=== PATIENT | female | born 1965 | race Caucasian/White ===

== ENCOUNTER 2020-01-11 06:09 | Outpatient (REF) | payer OTHER, SELFPAY ==
[2020-01-11 07:46] LABS: Alanine Aminotransferase 20 U/L (0-31); Albumin Level 4.6 g/dL (3.5-5.0); Alkaline Phosphatase 85 U/L (39-117); Anion Gap 13 (12-20); Aspartate Amino Transferase 18 U/L (5-31); Bilirubin Total 0.3 mg/dL (0.0-1.0); Blood Urea Nitrogen 10 mg/dL (9-16); Calcium 9.8 mg/dL (8.4-10.2); Carbon Dioxide 27 mmol/L (22-29); Chloride 103 mmol/L (96-108); Cholesterol 211 mg/dL; Estimated Glomerular Filt Rate > 60; Glucose Fasting 86 mg/dL (60-99); HDL Cholesterol 47 mg/dL; LDL Cholesterol Calculated 120 mg/dl; Potassium 4.5 mmol/l (3.3-5.1); Sodium 138 mmol/L (135-145); Total Protein 7.7 g/dL (6.5-8.0); Triglycerides 224 mg/dL
== END 2020-01-11 06:10 | disposition home or self-care (01) ==
LOC: HO.LAB 06:09
PROVIDERS: PCP Internal Medicine; Visit Provider Internal Medicine
DX: E78.00 Pure hypercholesterolemia, unspecified (principal)
CPT/HCPCS: 80053; 80061

== ENCOUNTER 2020-06-28 07:23 | Outpatient (REF) | payer OTHER, SELFPAY ==
--- NOTE | ~2020-06-28 | MM_ITS ---
EXAMINATION: MM SCREENING DIGITAL BREAST TOMOSYNTHESIS, BILATERAL CLINICAL INFORMATION: Screening. Asymptomatic. The lifetime risk of breast cancer based on the Tyrer-Cuzick Model is 8.8%. COMPARISON: Mammography: June 03, 2018 and studies dating back to February 02, 2013 TECHNIQUE: Digital breast tomosynthesis is performed in both the craniocaudal and mediolateral oblique views along with computer-aided detection (CAD). Synthesized 2D images are generated from the tomosynthesis. FINDINGS: The breasts are heterogeneously dense, which may obscure small masses (ACR BI-RADS breast composition Category c). No specific right breast abnormality is appreciated. Within the central medial aspect of the left breast there is a grouping of calcification for which spot magnification views in craniocaudal and 90 degree mediolateral views is recommended. MM/MM tomosynthesis screening BI IMPRESSION: Left breast calcifications for further evaluation. ASSESSMENT: BI-RADS 0: Incomplete - Need Additional Imaging Evaluation RECOMMENDATION: 1. Additional views of the left breast 2. Radiology department staff will contact the patient for additional imaging.
== END 2020-06-28 07:24 | disposition home or self-care (01) ==
LOC: HO.MAMMO 07:23
PROVIDERS: Visit Provider Internal Medicine
DX: Z12.31 Encounter for screening mammogram for malignant neoplasm of breast (principal)
CPT/HCPCS: 77063; 77067

== ENCOUNTER 2020-07-09 15:02 | Outpatient (REF) | payer OTHER, SELFPAY ==
--- NOTE | ~2020-07-09 | MM_ITS ---
EXAMINATION: MM DIAGNOSTIC DIGITAL MAMMOGRAPHY, LEFT CLINICAL INFORMATION: Recall from screening for question of faint calcification medial left breast. COMPARISON: Mammography: 06/28/2020, 06/03/2018 TECHNIQUE: Digital mammography is performed in the following views: Magnification CC x2, magnification LM x2. FINDINGS: The breasts are heterogeneously dense, which may obscure small masses (ACR BI-RADS breast composition Category c). Breast tissue composition borders on average fibroglandular. The additional views confirm grouped faint amorphous calcifications upper inner quadrant left breast. Finding represents change from prior exams. Recommend stereotactic sampling. Results are discussed with the patient at time of visit. MM/MM added views LT IMPRESSION: Amorphous calcifications upper inner left breast corresponding to finding on recent mammography. ASSESSMENT: BI-RADS 4: Suspicious RECOMMENDATION: Stereotactic sampling left breast calcifications.
== END 2020-07-09 15:03 | disposition home or self-care (01) ==
LOC: HO.MAMMO 15:02
PROVIDERS: Visit Provider Internal Medicine
DX: R92.1 Mammographic calcification found on diagnostic imaging of breast (principal)
CPT/HCPCS: 77065

== ENCOUNTER 2020-08-05 09:06 | Outpatient (REF) | payer OTHER, SELFPAY ==
--- NOTE | ~2020-08-05 | MM_ITS ---
EXAMINATION: STEREOTACTIC TOMOSYNTHESIS-GUIDED VACUUM-ASSISTED BREAST BIOPSY, LEFT SPECIMEN RADIOGRAPH, LEFT POST PROCEDURE DIGITAL MAMMOGRAM, LEFT CLINICAL INFORMATION: Indeterminate calcifications about the medial aspect of the left breast. COMPARISON: July 09, 2020 and studies dating back to May 24, 2017. TECHNIQUE/PROCEDURE: Informed consent was obtained from the patient after discussion of the benefits, risks, and alternatives to biopsy today. Patient appeared to understand. Gave opportunity for questions. Patient signed consent form. BIOPSY TABLE: [employer] Aff[employer] Prone Biopsy System. LESION: Calcifications. LOCAL ANESTHESIA: 10 mL 1% lidocaine; 16 mL 1% lidocaine with epinephrine. DERMATOTOMY: Single skin mariangel dermatotomy performed. NEEDLE: [employer] Eviva 9-gauge vacuum assisted core biopsy device. APPROACH: medial lateral. TARGETING: Digital breast tomosynthesis used for targeting. CORES: 15. CLIP: [employer] Cylinder-shaped marker. SPECIMEN RADIOGRAPH: Specimen radiograph is taken in separate room using digital mammography. The index calcifications are in the excised cores. Some of the calcifications appear to be vascular in nature. POST PROCEDURE UNILATERAL DIGITAL MAMMOGRAM: The post biopsy mammogram is performed in separate room using separate digital mammography equipment from the biopsy procedure. 2 views are obtained. The breasts are heterogeneously dense, which may obscure small masses (breast composition category: c). The clip marker is in position. The calcifications are markedly decreased at the biopsy site. There is a small hematoma. The patient tolerated the procedure well. No immediate complications. Home instructions reviewed with the patient. Final pathology results are pending. MM/MM stereotactic biopsy LT IMPRESSION: 1. Digital tomosynthesis-guided core biopsy left breast with clip placement. 2. Specimen radiograph taken and post procedure mammogram. There is satisfactory positioning of the biopsy clip. 3. Final pathology results pending. An addendum report will be issued.
== END 2020-08-05 09:07 | disposition home or self-care (01) ==
LOC: HO.MAMMO 09:06
PROVIDERS: Visit Provider Surgery
DX: R92.1 Mammographic calcification found on diagnostic imaging of breast (principal)
CPT/HCPCS: 19081; 88305; 88341; 88342; A4648

== ENCOUNTER → 2020-08-08 11:19 | Outpatient (BNVA) | payer OTHER, SELFPAY | PROVIDERS: PCP Internal Medicine; Referring Provider Internal Medicine; Visit Provider Surgery ==

== ENCOUNTER 2020-12-31 05:53 | Outpatient (REF) | payer OTHER, SELFPAY ==
[2020-12-31 06:09] LABS: MANUAL DIFF FLAG NO
[2020-12-31 07:23] LABS: Basophils Absolute Auto 0.1 X10*3/uL (0.0-0.2); Basophils Percent Auto 0.5 % (0-2); Eosinophils Absolute Auto 0.2 X10*3/uL (0.0-0.4); Hematocrit 47.9 % (37.0-47.0); Hemoglobin 15.5 g/dl (12.0-16.0); Imm Gran Abs Auto 0.05 X10*3/uL (0.00-0.03); Imm Gran Pct Auto 0.5 % (0.0-0.4); Lymphocytes Absolute Auto 2.9 X10*3/uL (1.2-4.9); Lymphocytes Percent Auto 30.1 % (20-40); Mean Corpuscular HGB Conc 32.4 g/dl (31.0-35.0); Mean Corpuscular Hemoglobin 30.9 pg (27.0-33.0); Mean Corpuscular Volume 95.6 fL (80.0-98.0); Mean Platelet Volume 11.2 fL (9.4-12.3); Monocytes Absolute Auto 0.6 X10*3/uL (0.1-1.2); Monocytes Percent Auto 6.3 % (2-11); Neutrophils Absolute Auto 5.8 x10*3/uL (2.0-8.3); Neutrophils Percent Auto 60.6 % (45-73); Platelet Count 221 X10*3/uL (160-400); Red Blood Count 5.01 X10*6/uL (4.20-5.50); Red Cell Distribution Width 13.2 % (11.0-16.0); White Blood Count 9.5 X10*3/uL (4.8-10.8)
[2020-12-31 07:47] LABS: Alanine Aminotransferase 24 U/L (0-31); Albumin Level 4.5 g/dL (3.5-5.0); Alkaline Phosphatase 74 U/L (39-117); Anion Gap 14 (12-20); Aspartate Amino Transferase 23 U/L (5-31); Bilirubin Total 0.2 mg/dL (0.0-1.0); Blood Urea Nitrogen 12 mg/dL (9-16); Calcium 10.1 mg/dL (8.4-10.2); Carbon Dioxide 26 mmol/L (22-29); Chloride 106 mmol/L (96-108); Cholesterol 209 mg/dL; Estimated Glomerular Filt Rate > 60; Glucose Random 95 mg/dL (60-115); HDL Cholesterol 56 mg/dL; LDL Cholesterol Calculated 126 mg/dl; Potassium 4.8 mmol/L (3.3-5.1); Sodium 141 mmol/L (135-145); Total Protein 7.6 g/dL (6.5-8.0); Triglycerides 136 mg/dL
[2020-12-31 08:02] LABS: Estimated Average Glucose 111 mg/dL; Hemoglobin A1c % 5.5 %
[2020-12-31 08:10] LABS: Free T4 (Free Thyroxine) 1.06 ng/dL (0.71-1.85); Thyroid Stimulating Hormone 1.24 uIU/mL (0.32-4.0)
[2020-12-31 08:19] LABS: Folate 14.8 ng/mL (> or = 4.0); Vitamin B12 354 pg/mL (200-900)
== END 2020-12-31 05:54 | disposition home or self-care (01) ==
LOC: HO.LAB 05:53
PROVIDERS: PCP Internal Medicine; Visit Provider Internal Medicine
DX: R73.02 Impaired glucose tolerance (oral) (principal); E03.9 Hypothyroidism, unspecified; E78.00 Pure hypercholesterolemia, unspecified
CPT/HCPCS: 36415; 80053; 80061; 82306; 82607; 82746; 83036; 84439; 84443; 85025

== ENCOUNTER → 2021-04-23 10:16 | Outpatient (BNVA) | payer OTHER, SELFPAY | PROVIDERS: PCP Internal Medicine; Visit Provider Internal Medicine | DX: S46.912A Strain of unspecified muscle, fascia and tendon at shoulder and upper arm level, left arm, initial encounter (principal); S46.212A Strain of muscle, fascia and tendon of other parts of biceps, left arm, initial encounter; X50.1XXA Overexertion from prolonged static or awkward postures, initial encounter | CPT/HCPCS: 99203 ==

== ENCOUNTER → 2021-04-27 07:31 | Outpatient (BNVA) | payer OTHER, SELFPAY | PROVIDERS: PCP Internal Medicine; Visit Provider Physician Assistant Medical | DX: S46.912A Strain of unspecified muscle, fascia and tendon at shoulder and upper arm level, left arm, initial encounter (principal); S46.212A Strain of muscle, fascia and tendon of other parts of biceps, left arm, initial encounter; X58.XXXA Exposure to other specified factors, initial encounter | CPT/HCPCS: 99213 ==

== ENCOUNTER 2021-07-27 07:32 | Outpatient (REF) | payer OTHER, SELFPAY ==
--- NOTE | ~2021-07-27 | MM_ITS ---
EXAMINATION: MM SCREENING DIGITAL BREAST TOMOSYNTHESIS, BILATERAL CLINICAL INFORMATION: Screening. Asymptomatic. Benign left stereotactic biopsy 08/05/2020 (benign breast tissue with fibrocystic changes and adenosis). The lifetime risk of breast cancer based on the Tyrer-Cuzick Model is 8%. COMPARISON: Mammography: 08/05/2020, 07/09/2020, 06/28/2020, 06/03/2018 TECHNIQUE: Digital breast tomosynthesis is performed in both the craniocaudal and mediolateral oblique views along with computer-aided detection (CAD). Synthesized 2D images are generated from the tomosynthesis. FINDINGS: There are scattered areas of fibroglandular density (ACR BI-RADS breast composition Category b). Breast tissue composition borders on heterogeneously dense. There are no significant masses, abnormal calcifications, or other abnormalities. There is biopsy clip marker mid 9:00 left breast. No recurrent calcifications. The axilla and skin contours are unremarkable. MM/MM tomosynthesis screening BI IMPRESSION: No mammographic evidence of malignancy. ASSESSMENT: BI-RADS 2: Benign RECOMMENDATION: Routine annual mammography screening. This patient's information was entered into a reminder system with a target due date for their next mammogram.
== END 2021-07-27 07:33 | disposition home or self-care (01) ==
LOC: HO.MAMMO 07:32
PROVIDERS: PCP Internal Medicine; Visit Provider Internal Medicine
DX: Z12.31 Encounter for screening mammogram for malignant neoplasm of breast (principal)
CPT/HCPCS: 77063; 77067

== ENCOUNTER 2021-12-15 06:11 | Outpatient (REF) | payer OTHER, SELFPAY ==
[2021-12-15 06:17] LABS: MANUAL DIFF FLAG NO
[2021-12-15 07:32] LABS: Basophils Absolute Auto 0.1 X10*3/uL (0.0-0.2); Basophils Percent Auto 0.6 % (0-2); Eosinophils Absolute Auto 0.2 X10*3/uL (0.0-0.4); Eosinophils Percent Auto 2.5 % (0-4); Hematocrit 46.7 % (37.0-47.0); Hemoglobin 14.8 g/dl (12.0-16.0); Imm Gran Abs Auto 0.06 X10*3/uL (0.00-0.03); Imm Gran Pct Auto 0.7 % (0.0-0.4); Lymphocytes Absolute Auto 2.9 X10*3/uL (1.2-4.9); Lymphocytes Percent Auto 34.4 % (20-40); Mean Corpuscular HGB Conc 31.7 g/dl (31.0-35.0); Mean Corpuscular Hemoglobin 30.6 pg (27.0-33.0); Mean Corpuscular Volume 96.7 fL (80.0-98.0); Monocytes Absolute Auto 0.5 X10*3/uL (0.1-1.2); Neutrophils Absolute Auto 4.8 x10*3/uL (2.0-8.3); Neutrophils Percent Auto 55.8 % (45-73); Platelet Count 223 X10*3/uL (160-400); Red Blood Count 4.83 X10*6/uL (4.20-5.50); Red Cell Distribution Width 12.3 % (11.0-16.0); White Blood Count 8.5 X10*3/uL (4.8-10.8)
[2021-12-15 08:10] LABS: Erythrocyte Sedimentation Rate 4 MM/HR (0-20)
[2021-12-15 13:31] LABS: Estimated Average Glucose 117 mg/dL; Hemoglobin A1C 149.8875 umol/L; Hemoglobin A1c % 5.7 %
[2021-12-15 13:48] LABS: Albumin Level 4.7 g/dL (3.5-5.0); Alkaline Phosphatase 81 U/L (39-117); Aspartate Amino Transferase 25 U/L (5-31); Bilirubin Total 0.3 mg/dL (0.0-1.0); Blood Urea Nitrogen 12 mg/dL (9-16); Calcium 10.1 mg/dL (8.4-10.2); Chloride 103 mmol/L (96-108); Estimated Glomerular Filt Rate > 60; Glucose Random 94 mg/dL (60-115); Potassium 4.7 mmol/L (3.3-5.1); Sodium 139 mmol/L (135-145)
[2021-12-15 14:05] LABS: Alanine Aminotransferase 27 U/L (0-31); Anion Gap 16 (12-20); Carbon Dioxide 25 mmol/L (22-29); Cholesterol 253 mg/dL; Free T4 (Free Thyroxine) 0.91 ng/dL (0.71-1.85); HDL Cholesterol 60 mg/dL; LDL Cholesterol Calculated 152 mg/dl; Total Protein 7.7 g/dL (6.5-8.0); Triglycerides 208 mg/dL; Vitamin D 25-OH Total 27.8 ng/mL (>30)
[2021-12-15 14:07] LABS: Folate 11.6 ng/mL (> or = 4.0); Vitamin B12 356 pg/mL (200-900)
== END 2021-12-15 06:12 | disposition home or self-care (01) ==
LOC: HO.LAB 06:11
PROVIDERS: PCP Internal Medicine; Visit Provider Internal Medicine
DX: E03.9 Hypothyroidism, unspecified (principal); R73.02 Impaired glucose tolerance (oral); L93.0 Discoid lupus erythematosus; E78.00 Pure hypercholesterolemia, unspecified
CPT/HCPCS: 36415; 80053; 80061; 82306; 82607; 82746; 83036; 84439; 84443; 85025; 85652

== ENCOUNTER 2022-05-07 14:37 | Outpatient (REF) | payer OTHER, SELFPAY ==
--- NOTE | ~2022-05-07 | CT_ITS ---
EXAMINATION: CT CHEST SCREENING CLINICAL INFORMATION: Current smoker with 45 pack-year history of smoking. COMPARISON: None available. TECHNIQUE: Multidetector volumetric CT imaging of the chest is performed without contrast using low dose technique. Additional 2D coronal and sagittal reformatted images and axial 3D maximum intensity projection (MIP) images are generated on the CT workstation. This CT examination was performed using dose optimization techniques as appropriate, variously including the following: *Automated exposure control *Adjustment of mA and/or kV according to patient size (this includes techniques or standardized protocols for targeted exams where dose is matched to indication/reason for exam; i.e. extremities or head) *Use of iterative reconstruction technique DLP: 51 mGy-cm FINDINGS: LUNGS: Central airways are patent. No significant bronchial wall thickening is seen. No bronchiectasis is noted. No confluent parenchymal disease is seen. There are moderate changes of centrilobular and paraseptal emphysema. There are discoid regions of density about some of the bulla within the left upper lobe likely representing scarring. There is some minor ground-glass opacity seen adjacent to the left major fissure likely representing mild atelectasis. There are a few scattered sub-4 mm densities present. There is a 4 mm granuloma seen within the left lower lobe. MEDIASTINUM: Heart normal size. No pericardial effusion. No thoracic aortic aneurysm. There is a 1.2 cm short axis right precarinal lymph node. No hilar lymphadenopathy is identified. CORONARY ARTERY CALCIFICATION: There is mild coronary artery calcification present. PLEURA: There is no pleural effusion. No pleural mass or thickening. AXILLA: No lymphadenopathy. UPPER ABDOMEN: There is cholelithiasis present. OSSEOUS STRUCTURES: Unremarkable. CT/CT lung screening IMPRESSION: No suspicious lung nodules identified. Moderate emphysematous changes as described. Cholelithiasis. Old granulomatous disease. ASSESSMENT: Lung-RADS category 2: Benign RECOMMENDATION: Routine annual low-dose CT screening in 12 months.
== END 2022-05-07 14:38 | disposition home or self-care (01) ==
LOC: HO.CT 14:37
PROVIDERS: PCP Internal Medicine; Visit Provider Physician Assistant Medical
DX: Z12.2 Encounter for screening for malignant neoplasm of respiratory organs (principal); F17.210 Nicotine dependence, cigarettes, uncomplicated
CPT/HCPCS: 71271; G0296

== ENCOUNTER 2022-08-06 10:52 | Outpatient (REF) | payer OTHER, SELFPAY ==
--- NOTE | ~2022-08-06 | MM_ITS ---
EXAMINATION: MM SCREENING DIGITAL BREAST TOMOSYNTHESIS, BILATERAL CLINICAL INFORMATION: Screening. Asymptomatic. The lifetime risk of breast cancer based on the Tyrer-Cuzick Model is 8.2%. COMPARISON: Mammography: This study is compared with the prior exams dating back to 2019. TECHNIQUE: Digital breast tomosynthesis is performed in both the craniocaudal and mediolateral oblique views along with computer-aided detection (CAD). Synthesized 2D images are generated from the tomosynthesis. FINDINGS: There are scattered areas of fibroglandular density (ACR BI-RADS breast composition Category b). There are no significant masses, abnormal calcifications, or other abnormalities. There is a tissue marker present in the left breast from prior benign percutaneous biopsy. MM/MM tomosynthesis screening BI IMPRESSION: No mammographic evidence of malignancy. ASSESSMENT: BI-RADS BI-RADS 2 - Benign Findings RECOMMENDATION: Routine annual mammography screening. 1 year F/U This patient's information was entered into a reminder system with a target due date for their next mammogram.
== END 2022-08-06 10:53 | disposition home or self-care (01) ==
LOC: HO.MAMMO 10:52
PROVIDERS: PCP Internal Medicine; Visit Provider Internal Medicine
DX: Z12.31 Encounter for screening mammogram for malignant neoplasm of breast (principal)
CPT/HCPCS: 77063; 77067

== ENCOUNTER → 2022-08-06 11:00 | Outpatient (BNV) | payer OTHER, SELFPAY | PROVIDERS: PCP Internal Medicine; Visit Provider Radiology Diagnostic Radiology | DX: Z12.31 Encounter for screening mammogram for malignant neoplasm of breast (principal) | CPT/HCPCS: 77063; 77067 ==

== ENCOUNTER → 2022-12-02 11:05 | Outpatient (BNVA) | payer OTHER, SELFPAY | PROVIDERS: PCP Internal Medicine; Visit Provider Physician Assistant Medical | DX: S97.112A Crushing injury of left great toe, initial encounter (principal); W18.31XA Fall on same level due to stepping on an object, initial encounter | CPT/HCPCS: 99202 ==

== ENCOUNTER 2022-12-17 06:13 | Outpatient (REF) | payer OTHER, SELFPAY ==
[2022-12-17 06:33] LABS: MANUAL DIFF FLAG NO
[2022-12-17 07:01] LABS: Basophils Absolute Auto 0.1 X10*3/uL (0.0-0.2); Basophils Percent Auto 0.6 % (0-2); Eosinophils Absolute Auto 0.2 X10*3/uL (0.0-0.4); Eosinophils Percent Auto 1.9 % (0-4); Hematocrit 46.5 % (37.0-47.0); Hemoglobin 15.2 g/dl (12.0-16.0); Imm Gran Abs Auto 0.05 X10*3/uL (0.00-0.03); Imm Gran Pct Auto 0.6 % (0.0-0.4); Lymphocytes Absolute Auto 3.5 X10*3/uL (1.2-4.9); Lymphocytes Percent Auto 40.1 % (20-40); Mean Corpuscular HGB Conc 32.7 g/dl (31.0-35.0); Mean Corpuscular Hemoglobin 30.9 pg (27.0-33.0); Mean Corpuscular Volume 94.5 fL (80.0-98.0); Mean Platelet Volume 10.8 fL (9.4-12.3); Monocytes Absolute Auto 0.5 X10*3/uL (0.1-1.2); Monocytes Percent Auto 5.8 % (2-11); Neutrophils Absolute Auto 4.4 x10*3/uL (2.0-8.3); Platelet Count 227 X10*3/uL (160-400); Red Blood Count 4.92 X10*6/uL (4.20-5.50); Red Cell Distribution Width 12.9 % (11.0-16.0); White Blood Count 8.6 X10*3/uL (4.8-10.8)
[2022-12-17 07:12] LABS: Estimated Average Glucose 114 mg/dL; Hemoglobin A1c % 5.6 % (<6.0)
[2022-12-17 07:44] LABS: Alanine Aminotransferase 20 U/L (0-31); Albumin Level 4.6 g/dL (3.5-5.0); Alkaline Phosphatase 74 U/L (39-117); Anion Gap 12 (12-20); Aspartate Amino Transferase 23 U/L (5-31); Bilirubin Total 0.4 mg/dL (0.0-1.0); Blood Urea Nitrogen 12 mg/dL (9-16); Calcium 9.8 mg/dL (8.4-10.2); Carbon Dioxide 26 mmol/L (22-29); Chloride 106 mmol/L (96-108); Cholesterol 235 mg/dL (<200); Estimated Glomerular Filt Rate > 60; Glucose Random 99 mg/dL (60-115); HDL Cholesterol 52 mg/dL (>40); LDL Cholesterol Calculated 153 mg/dL (<100); Potassium 4.2 mmol/L (3.3-5.1); Sodium 140 mmol/L (135-145); Total Protein 7.9 g/dL (6.5-8.0); Triglycerides 153 mg/dL (<150)
[2022-12-17 07:52] LABS: Free T4 (Free Thyroxine) 0.95 ng/dL (0.71-1.85); Thyroid Stimulating Hormone 2.96 uIU/mL (0.32-4.0); Vitamin D 25-OH Total 27.5 ng/mL (>30)
[2022-12-17 08:04] LABS: Folate 11.6 ng/mL (> or = 4.0); Vitamin B12 431 pg/mL (200-900)
== END 2022-12-17 06:14 | disposition home or self-care (01) ==
LOC: HO.LAB 06:13
PROVIDERS: PCP Internal Medicine; Visit Provider Internal Medicine
DX: E03.9 Hypothyroidism, unspecified (principal); R73.02 Impaired glucose tolerance (oral); E78.00 Pure hypercholesterolemia, unspecified; E55.9 Vitamin D deficiency, unspecified; M85.80 Other specified disorders of bone density and structure, unspecified site
CPT/HCPCS: 36415; 80053; 80061; 82306; 82607; 82746; 83036; 84439; 84443; 85025

== ENCOUNTER 2023-03-24 11:06 | Outpatient (AMB) | payer OTHER, SELFPAY ==
--- NOTE | 2023-03-24 11:15 | A.OFFPC_ITS ---
Vital Signs 03/24/23 11:16 Height 5 ft 1 in Weight 155 lb BMI 29.3 BP 130/76 Blood Pressure Location Lt brachial Position Sitting Pulse 90 Pulse Source Pulse Oximeter Pulse Oximetry (%) 96 Oxygen Delivery Method Room Air Intake Visit Reasons: Annual Physical Dial Polisher Required: No Padded Products Finisher: Not Required per policy Accompanied by: Self / Same As Patient Allergies amoxicillin Allergy (Unknown, Verified 03/24/23 11:16) Unknown itraconazole [Sporanox] Allergy (Unknown, Verified 03/24/23 11:16) ear swelling metronidazole [Flagyl] Allergy (Unknown, Verified 03/24/23 11:16) stomach upset pseudoephedrine [Sudafed] Adverse Reaction (Unknown, Verified 03/24/23 11:16) rapid heart rate Medication List - Last Reconciled 03/24/23 by Trevor Bell MD betamethasone dipropionate 0.05% 1 appl topical BID clobetasol 0.05% 1 appl topical BID fexofenadine ([place] Allergy) 180 mg PO DAILY Levoxyl (levothyroxine) 112 mcg PO QAM NS simvastatin 5 mg PO BEDTIME tacrolimus 0.1% 1 appl topical BID Tobacco use date assessed: 03/24/23 Dental Screening Dental Screen Date: 03/24/23 Did you have a dental visit in the last 12 months?: Yes Did you have a dental problem in the last 6 months where you did not have access to dental care?: No Was dental information given to patient?: Patient has dentist HPI Annual Physical HPI Details 57 year old overweight female smoker wi th IGT, Cholesterol, hypothyroid coming in for PT CT scan chest 04/2022 yearly. noted choelithiasis and COPD. problem with L ear hearing. [facility] Medical History Asthma Blood pressure elevated without history of HTN Cholelithiasis Discoid lupus History of gestational diabetes Hypercholesterolemia Hyperplastic colon polyp (~2017) Hypothyroid Nicotine dependence, cigarettes, uncomplicated Osteopenia (~2017) Vitamin D deficiency Surgical History History of colonoscopy History of section Family History (Updated 03/24/23 @ 12:10 by Trevor Bell MD) Father Myocardial infarction Mother CHF (congestive heart failure) Paternal Aunt Pancreatic cancer Sister Brain tumor Myocardial infarction Substance abuse Sister Heart problem Paternal Grandmother Lung cancer Sister Malignant glucagonoma Brother Substance abuse Maternal Uncle Substance abuse Social History (Updated 03/24/23 @ 12:12 by Trevor Bell MD) Housing: House Alcohol intake: current Comment: once Q 6 month 2 drinks Patient Tobacco Use Status: Current everyday Tobacco user Tobacco use type: Cigarette Cigarette Packs Per Day: 0.5 Cigarettes Per Day: 10 Years Smoked: (onset 11yo, 1ppd x 45yrs, now 1/2ppd, 40pyh)- smoking 11-12 cigarettes a e-Cigarette/Vaping Use: Never Used Second Hand Smoke Exposure: No Current occupational status: employed Cognitive needs: No Hearing needs: No Vision needs: Yes Female Reproductive History Menstrual Age of Menarche: 16 Questionnaire PHQ-9 Over the last 2 weeks, how often have you been bothered by any of the following problems? 1. Little interest or pleasure in doing things: not at all 2. Feeling down, depressed, or hopeless: not at all 3. Trouble falling or staying asleep, or sleeping too much: not at all 4. Feeling tired or having little energy: not at all 5. Poor appetite or overeating: not at all 6. Feeling bad about yourself - or that you are a failure or have let yourself or your family down: not at all 7. Trouble concentrating on things, such as reading the newspaper or watching television: not at all 8. Moving or speaking so slowly that other people could have noticed. Or the opposite - being so fidgety or restless that you have been moving around a lot more than usual: not at all 9. Thoughts that you would be better off or of hurting yourself in some way: not at all Total score: 0 Depression Screening Interpretation: Negative Depression Screening Done: Yes Source: Developed by Drs. Doni Aponte, Gisele Maxwell, Fred Cortez and colleagues, with an educational micah from [employer]. Thrive Questionnaire Date Thrive assessed: 03/24/23 I am a: Patient What is your living situation today?: I have a steady place to live Within the past 12 months, did the food you bought not last and you didn't have the money to get more?: Never true Within the past 12 months, did you worry whether your food would run out before you got money to buy more?: Never true Do you have trouble paying for medicines?: No Do you have trouble getting transportation to medical appointments?: No Do you have trouble paying your heating and electricity bill?: No Do you have trouble taking care of your child, family member or friend?: No Do you have trouble with day-to-day activities such as bathing, preparing meals, shopping, managing finances, etc.?: No Are you currently unemployed and looking for a job?: No Are you interested in more education?: No Please select the resources that you would like help with: None THRIVE Score: 0 AUDIT C Alcohol Use Questionnaire (AUDIT-C) 1. How often do you have a drink containing alcohol?: Monthly or less 2. How many drinks containing alcohol do you have on a typical day when you are drinking?: 1 or 2 3. How often do you have six or more drinks on one occasion?: Never Total Score: 1 CAROLYN-7 AMB Questionnaire CAROLYN-7 Date CAROLYN - 7 assessed: 03/24/23 Feeling nervous, anxious, or on edge: 0 = Not at all Not being able to stop or control worryin = Not at all Worrying too much about different things: 0 = Not at all Trouble relaxin = Not at all Being so restless that it is hard to sit still: 0 = Not at all Becoming easily annoyed or irritable: 0 = Not at all Feeling afraid as if something awful might happen: 0 = Not at all Total CAROLYN-7 score (0-4 normal; 5-9 mild; 10-14 moderate; 15-21 severe): 0 Source: Developed by Drs. Doni Aponte, Gisele Maxwell, Fred Cortez and colleagues, with an educational micah from [employer]. Review of Systems Const Denies poor appetite and Denies weakness Eyes Denies no additional complaints ENT Reports Normal hearing present, Denies dizziness, Denies nasal congestion, Denies tinnitus and Denies sore throat Card Denies chest pain, Denies syncope, Denies rapid heart rate and Denies dyspnea Resp Denies cough and Denies dyspnea GI Denies change in stool character, Reports constipation, Denies diarrhea, Denies nausea and Denies vomiting Denies urinary frequency, Denies difficulty voiding and Denies dysuria Neuro Reports Normal hearing present, Denies confusion, Denies dizziness, Denies syncope and Denies weakness Psych Denies confusion Physical exam (Primary Care) Vital Signs: Last Vital Signs Pulse 90 03/24/23 11:16 BP 130/76 03/24/23 11:16 Pulse Ox 96 03/24/23 11:16 Oxygen Delivery Method Room Air 03/24/23 11:16 BMI result Body Mass Index 29.3 Tobacco/Smoking Status: Tobacco use Status Tobacco use date assessed 03/24/23 03/24/23 11:17 Patient Tobacco Use Status Current everyday Tobacco 03/24/23 12:12 Tobacco use type Cigarette 03/24/23 12:12 e-Cigarette/Vaping Use Never Used 03/24/23 12:12 PHQ-9: PHQ-9 Score PHQ-9: Total score 0 03/24/23 12:14 Depression Screening Interpretation: Negative Thrive Assessment: Date of Thrive Assessment Date Thrive assessed 03/24/23 03/24/23 11:17 Const General: No confusion Orientation/consciousness: No confusion HENMT Head: Yes normocephalic Ears: external ears normal and TM's normal bilaterally Face and sinus: Yes normal facial exam Mouth: moist mucous membranes Throat: Yes tonsils normal Eyes Conjunctivae: conjunctivae normal Pupils: Equal, round and reactive pupils present and Pupil accommodation reflex normal Direct Ophthalmoscopy: normal light reflex Neck Neck: No lymphadenopathy Thyroid: Thyroid normal Chest Chest palpation & inspection: normal inspection of the chest Resp Effort & Inspection: normal respiratory effort and no audible wheezes Auscultation: clear to auscultation bilaterally, no crackles, no wheezes and lung sounds not diminished Cardio Rate: regular rate Rhythm: regular rhythm Peripheral pulses: radial pulses present and dorsalis pedis present GI Palpation (GI): no masses Auscultation: normal bowel sounds and normoactive bowel sounds Rectal Exam - Female: deferred Skin General skin exam: no rashes or lesions noted Rashes: no rashes Neuro General: No confusion Cranial nerves: Yes Equal, round and reactive pupils present and Yes Normal hearing present Cognition (Neuro): normal cognition Gait exam (Neuro): Normal gait present Motor exam (neuro): 5/5 motor strength present throughout Deep tendon reflexes (DTR's): Right brachioradialis reflex intensity grade: 2+, Left brachioradialis reflex intensity grade: 2+, Right patellar reflex intensity grade: 2+ and Left patellar reflex intensity grade: 2+ Extrem General: No edema Assessment and Plan Assessment & Plan (1) Annual physical exam: Code(s): Z00.00 - Encounter for general adult medical examination without abnormal findings Plan: Keep well hydrated, eat healthy (2) Hypothyroid: Code(s): E03.9 - Hypothyroidism, unspecified Qualifiers: Hypothyroidism type: acquired Qualified Code(s): E03.9 - Hypothyroidism, unspecified Plan: continue with thryoid med 12/2022 last test (3) Hypercholesterolemia: Code(s): E78.00 - Pure hypercholesterolemia, unspecified Plan: on Simvastatin (4) Asthma: Code(s): J45.909 - Unspecified asthma, uncomplicated Plan: STOP smoking (5) Nicotine dependence, cigarettes, uncomplicated: Comment: (current smoker - onset 11yo, 1ppd x 45yrs, now 1/2ppd, 40pyh) Code(s): F17.210 - Nicotine dependence, cigarettes, uncomplicated Plan: STOP smoking -! CT scan 05/07/2022 (6) Osteopenia: Onset Date: ~2017 Comment: (Bone Dexa Femoral T-score: -1.1 on 01/20/18) Code(s): M85.80 - Other specified disorders of bone density and structure, unspecified site Plan: keep active discussedc about calcium and vitamin d Orders: Orders Lipid Panel 3 Months E78.00 - Pure hypercholesterolemia, unspecified Comprehensive Met. Panel 3 Months E78.00 - Pure hypercholesterolemia, unspecified Hemoglobin A1c 3 Months R73.02 - Impaired glucose tolerance (oral) XR DEXA axial skeleton Today M81.0 - Age-related osteoporosis without current pathological fracture, M85.80 - Other specified disorders of bone density and structure, unspecified site Medications: New varenicline (Chantix Starting Month Box) PO PER PKG DIR 53 ea 0RF F17.210 - Nicotine dependence, cigarettes, uncomplicated Changed From simvastatin 5 mg PO BEDTIME 90 tabs 3RF E78.00 - Pure hypercholesterolemia, unspecified To simvastatin 10 mg PO BEDTIME 30 tabs 5RF E78.00 - Pure hypercholesterolemia, unspecified Coding Level of Care Code Est Pt Prev Care 40-64y(62531) Diagnoses Annual physical exam Z00.00 Acquired hypothyroidism E03.9 Hypothyroidism type: acquired Hypercholesterolemia E78.00 Asthma J45.909 Nicotine dependence, cigarettes, uncomplicated F17.210 Osteopenia M85.80
[2023-03-24 11:16] VITALS: BP 130/76; PULSE 90; O2SAT 96; BMI 29.3
== END 2023-03-24 12:34 | disposition home or self-care (01) ==
PROVIDERS: PCP Internal Medicine; Visit Provider Internal Medicine
DX: Z00.00 Encounter for general adult medical examination without abnormal findings (principal); E03.9 Hypothyroidism, unspecified; E78.00 Pure hypercholesterolemia, unspecified; J45.909 Unspecified asthma, uncomplicated; F17.210 Nicotine dependence, cigarettes, uncomplicated; M85.80 Other specified disorders of bone density and structure, unspecified site
CPT/HCPCS: 99396

== ENCOUNTER 2023-06-27 11:21 | Outpatient (AMB) | payer OTHER, SELFPAY ==
--- NOTE | 2023-06-27 11:34 | MHC.PC.OV ---
Vital Signs 06/27/23 11:35 Height 5 ft 1 in Weight 159 lb 0.4 oz BMI 30.0 BP 132/78 Blood Pressure Location Lt brachial Position Sitting Pulse 76 Pulse Source Pulse Oximeter Oxygen Delivery Method Room Air Intake Visit Reasons: cholesterol [employer] Supervisor Required: No Allergies amoxicillin Allergy (Unknown, Verified 06/27/23 11:35) Unknown itraconazole [Sporanox] Allergy (Unknown, Verified 06/27/23 11:35) ear swelling metronidazole [Flagyl] Allergy (Unknown, Verified 06/27/23 11:35) stomach upset pseudoephedrine [Sudafed] Adverse Reaction (Unknown, Verified 06/27/23 11:35) rapid heart rate Medication List - Last Reconciled 06/27/23 by Trevor Bell MD betamethasone dipropionate 0.05% 1 appl topical BID clobetasol 0.05% 1 appl topical BID fexofenadine ([place] Allergy) 180 mg PO DAILY Levoxyl (levothyroxine) 112 mcg PO QAM NS simvastatin 10 mg PO BEDTIME tacrolimus 0.1% 1 appl topical BID varenicline (Chantix Starting Month Box) PO PER PKG DIR varenicline (Chantix Continuing Month Box) 1 mg PO BID Tobacco use date assessed: 06/27/23 Dental Screening Dental Screen Date: 06/27/23 HPI cholesterol HPI Details 57-year-old obese female smoker(April [address]) with hypothyroidism hypercholesterolemia asthma and osteopenia last seen in March 2023. Patient's mammogram is up-to-date July 2022 colonoscopy up-to-date December 2017 and a bone density requested. [facility] Medical History Asthma Blood pressure elevated without history of HTN Cholelithiasis Discoid lupus History of gestational diabetes Hypercholesterolemia Hyperplastic colon polyp (~2017) Hypothyroid Nicotine dependence, cigarettes, uncomplicated Osteopenia (~2018) Vitamin D deficiency Surgical History History of colonoscopy History of section Family History (Updated 03/24/23 @ 12:10 by Trevor Bell MD) Father Myocardial infarction Mother CHF (congestive heart failure) Paternal Aunt Pancreatic cancer Sister Brain tumor Myocardial infarction Substance abuse Sister Heart problem Paternal Grandmother Lung cancer Sister Malignant glucagonoma Brother Substance abuse Maternal Uncle Substance abuse Social History (Updated 03/24/23 @ 12:12 by Trevor Bell MD) Housing: House Alcohol intake: current Comment: once Q 6 month 2 drinks Patient Tobacco Use Status: Current everyday Tobacco user Tobacco use type: Cigarette Cigarette Packs Per Day: 0.5 Cigarettes Per Day: 10 Years Smoked: (onset 11yo, 1ppd x 45yrs, now 1/2ppd, 40pyh)- smoking 11-12 cigarettes a Packs Per Year: 0 Packs per year/per ci.00 e-Cigarette/Vaping Use: Never Used Second Hand Smoke Exposure: No Current occupational status: employed Cognitive needs: No Hearing needs: No Vision needs: Yes Female Reproductive History Menstrual Age of Menarche: 16 Questionnaire PHQ-9 Over the last 2 weeks, how often have you been bothered by any of the following problems? 1. Little interest or pleasure in doing things: not at all 2. Feeling down, depressed, or hopeless: not at all 3. Trouble falling or staying asleep, or sleeping too much: not at all 4. Feeling tired or having little energy: not at all 5. Poor appetite or overeating: not at all 6. Feeling bad about yourself - or that you are a failure or have let yourself or your family down: not at all 7. Trouble concentrating on things, such as reading the newspaper or watching television: not at all 8. Moving or speaking so slowly that other people could have noticed. Or the opposite - being so fidgety or restless that you have been moving around a lot more than usual: not at all 9. Thoughts that you would be better off or of hurting yourself in some way: not at all Total score: 0 Depression Screening Interpretation: Negative Depression Screening Done: Yes Source: Developed by Drs. Doni Aponte, Gisele Maxwell, Fred Cortez and colleagues, with an educational micah from [employer]. Thrive Questionnaire Date Thrive assessed: 03/24/23 I am a: Patient What is your living situation today?: I have a steady place to live Within the past 12 months, did the food you bought not last and you didn't have the money to get more?: Never true Within the past 12 months, did you worry whether your food would run out before you got money to buy more?: Never true Do you have trouble paying for medicines?: No Do you have trouble getting transportation to medical appointments?: No Do you have trouble paying your heating and electricity bill?: No Do you have trouble taking care of your child, family member or friend?: No Do you have trouble with day-to-day activities such as bathing, preparing meals, shopping, managing finances, etc.?: No Are you currently unemployed and looking for a job?: No Are you interested in more education?: No Please select the resources that you would like help with: None THRIVE Score: 0 AUDIT C Alcohol Use Questionnaire (AUDIT-C) 1. How often do you have a drink containing alcohol?: Monthly or less 2. How many drinks containing alcohol do you have on a typical day when you are drinking?: 1 or 2 3. How often do you have six or more drinks on one occasion?: Never Total Score: 1 CAROLYN-7 AMB Questionnaire CAROLYN-7 Date CAROLYN - 7 assessed: 03/24/23 Source: Developed by Drs. Doni Aponte, Gisele Maxwell, Fred Cortez and colleagues, with an educational micah from [employer]. Physical exam (Primary Care) Vital Signs: Last Vital Signs Pulse 76 06/27/23 11:35 BP 132/78 06/27/23 11:35 Oxygen Delivery Method Room Air 06/27/23 11:35 BMI result Body Mass Index 30.0 Tobacco/Smoking Status: Tobacco use Status Tobacco use date assessed 06/27/23 06/27/23 11:36 Patient Tobacco Use Status Current everyday Tobacco 06/27/23 11:36 Tobacco use type Cigarette 06/27/23 11:36 e-Cigarette/Vaping Use Never Used 06/27/23 11:36 PHQ-9: PHQ-9 Score PHQ-9: Total score 0 06/27/23 11:36 Depression Screening Interpretation: Negative Thrive Assessment: Date of Thrive Assessment Date Thrive assessed 03/24/23 06/27/23 11:36 Const General: alert; No acute distress Eyes Conjunctivae: conjunctivae normal Resp Auscultation: clear to auscultation bilaterally Cardio Rate: regular rate Rhythm: regular rhythm GI Inspection: Yes normal to inspection Extrem General: Yes normal to inspection and No edema Assessment and Plan Assessment & Plan (1) Osteopenia: Onset Date: ~2017 Comment: (Bone Dexa Femoral T-score: -1.1 on 01/20/18) Code(s): M85.80 - Other specified disorders of bone density and structure, unspecified site Plan: With the osteopenia patient is advise repeat bone density (2) Nicotine dependence, cigarettes, uncomplicated: Comment: (current smoker - onset 11yo, 1ppd x 45yrs, now 1/2ppd, 40pyh) May 10 stop Code(s): F17.210 - Nicotine dependence, cigarettes, uncomplicated Plan: Patient is strongly advised to stop smoking. CT scan last done in April 2022. (3) Asthma: Code(s): J45.909 - Unspecified asthma, uncomplicated Plan: Stop smoking! Has not required any inhalers. (4) Hypercholesterolemia: Code(s): E78.00 - Pure hypercholesterolemia, unspecified Plan: Avoid fried foods, chicken skin, eggs, butter margarine, pastries and meat. Be it pork or beef they have a lot of cholesterol LDL goal of less than 130 and triglyceride of less than 150. On simvastatin 10 mg once a day (5) Hypothyroid: Code(s): E03.9 - Hypothyroidism, unspecified Qualifiers: Hypothyroidism type: acquired Qualified Code(s): E03.9 - Hypothyroidism, unspecified Plan: Continue with thyroid medication Orders: Orders Thyroid Stimulating Hormone Today E03.9 - Hypothyroidism, unspecified Free T4 (Free Thyroxine) Today E03.9 - Hypothyroidism, unspecified Complete Blood Count Auto Diff Today E03.9 - Hypothyroidism, unspecified Vitamin B12 and Folate Today E03.9 - Hypothyroidism, unspecified Vitamin D 25-OH Total Today E03.9 - Hypothyroidism, unspecified Referrals Lung Cancer Screening Referral F17.210 - Nicotine dependence, cigarettes, uncomplicated Medications: Changed From Levoxyl (levothyroxine) 112 mcg PO QAM 90 tabs 3RF NS E03.9 - Hypothyroidism, unspecified To Levoxyl (levothyroxine) BRAND NECESSARY 112 mcg PO QAM 90 tabs 3RF NS E03.9 - Hypothyroidism, unspecified Refilled Levoxyl (levothyroxine) 112 mcg PO QAM 90 tabs 3RF NS E03.9 - Hypothyroidism, unspecified Coding Level of Care Code Est Pt Level 4 (49736) Diagnoses Osteopenia M85.80 Nicotine dependence, cigarettes, uncomplicated F17.210 Asthma J45.909 Hypercholesterolemia E78.00 Acquired hypothyroidism E03.9 Hypothyroidism type: acquired
[2023-06-27 11:35] VITALS: BP 132/78; PULSE 76
== END 2023-06-27 12:21 | disposition home or self-care (01) ==
PROVIDERS: PCP Internal Medicine; Visit Provider Internal Medicine
DX: M85.80 Other specified disorders of bone density and structure, unspecified site (principal); F17.210 Nicotine dependence, cigarettes, uncomplicated; J45.909 Unspecified asthma, uncomplicated; E78.00 Pure hypercholesterolemia, unspecified; E03.9 Hypothyroidism, unspecified
CPT/HCPCS: 99214

== ENCOUNTER 2023-08-02 06:11 | Outpatient (REF) | payer OTHER, SELFPAY ==
[2023-08-02 06:23] LABS: MANUAL DIFF FLAG NO
[2023-08-02 07:40] LABS: Basophils Absolute Auto 0.1 X10*3/uL (0.0-0.2); Basophils Percent Auto 0.7 % (0-2); Eosinophils Absolute Auto 0.2 X10*3/uL (0.0-0.4); Eosinophils Percent Auto 2.1 % (0-4); Hematocrit 44.5 % (37.0-47.0); Hemoglobin 14.7 g/dl (12.0-16.0); Imm Gran Abs Auto 0.06 X10*3/uL (0.00-0.03); Imm Gran Pct Auto 0.7 % (0.0-0.4); Lymphocytes Absolute Auto 3.4 X10*3/uL (1.2-4.9); Lymphocytes Percent Auto 37.1 % (20-40); Mean Corpuscular Hemoglobin 31.5 pg (27.0-33.0); Mean Corpuscular Volume 95.5 fL (80.0-98.0); Mean Platelet Volume 10.9 fL (9.4-12.3); Monocytes Absolute Auto 0.5 X10*3/uL (0.1-1.2); Monocytes Percent Auto 5.2 % (2-11); Neutrophils Percent Auto 54.2 % (45-73); Platelet Count 246 X10*3/uL (160-400); Red Blood Count 4.66 X10*6/uL (4.20-5.50); Red Cell Distribution Width 13.3 % (11.0-16.0); White Blood Count 9.2 X10*3/uL (4.8-10.8)
[2023-08-02 08:00] LABS: Estimated Average Glucose 117 mg/dL; Hemoglobin A1C 150.8971 umol/L; Hemoglobin A1c % 5.7 % (<6.0)
[2023-08-02 08:14] LABS: Alanine Aminotransferase 35 U/L (0-31); Albumin Level 4.7 g/dL (3.5-5.0); Alkaline Phosphatase 76 U/L (39-117); Anion Gap 13 (12-20); Aspartate Amino Transferase 31 U/L (5-31); Bilirubin Total 0.4 mg/dL (0.0-1.0); Blood Urea Nitrogen 15 mg/dL (9-16); Calcium 10.4 mg/dL (8.4-10.2); Carbon Dioxide 28 mmol/L (22-29); Chloride 105 mmol/L (96-108); Cholesterol 225 mg/dL (<200); Estimated Glomerular Filt Rate > 60; Glucose Random 99 mg/dL (60-115); HDL Cholesterol 64 mg/dL (>40); LDL Cholesterol Calculated 132 mg/dL (<100); Potassium 4.3 mmol/L (3.3-5.1); Sodium 142 mmol/L (135-145); Triglycerides 149 mg/dL (<150)
[2023-08-02 08:36] LABS: Free T4 (Free Thyroxine) 0.82 ng/dL (0.71-1.85); Thyroid Stimulating Hormone 6.51 uIU/mL (0.32-4.0); Vitamin D 25-OH Total 32.7 ng/mL (>30)
[2023-08-02 08:40] LABS: Folate 12.3 ng/mL (> or = 4.0); Vitamin B12 410 pg/mL (200-900)
== END 2023-08-02 06:12 | disposition home or self-care (01) ==
LOC: HO.LAB 06:11
PROVIDERS: PCP Internal Medicine; Visit Provider Internal Medicine
DX: E03.9 Hypothyroidism, unspecified (principal); E78.00 Pure hypercholesterolemia, unspecified; R73.02 Impaired glucose tolerance (oral)
CPT/HCPCS: 36415; 80053; 80061; 82306; 82607; 82746; 83036; 84439; 84443; 85025

== ENCOUNTER 2023-08-09 08:18 | Outpatient (REF) | payer BC, SELFPAY ==
--- NOTE | ~2023-08-09 | MM_ITS ---
EXAMINATION: BONE DENSITOMETRY CLINICAL INDICATION: Age-related osteoporosis without current pathological fracture. COMPARISON: Baseline BD dated 01/20/2018. TECHNIQUE: Using a [employer]loo DXA System (software version: 13.1) manufactured by [employer], dual-energy x-ray absorptiometry was performed of the lumbar spine and left hip. The images are of good technical quality. Summary results are attached. FINDINGS: LEFT FEMUR, NECK: Current: BMD 0.861 g/cm2, Z-score -0.4, T-score -1.3, osteopenia. Baseline: BMD 0.878 g/cm2. LEFT FEMUR, TOTAL: Current: BMD 0.925 g/cm2, Z-score -0.1, T-score -0.7, normal, 2.1% decrease from baseline (<5% change is not significant). Baseline: BMD 0.945 g/cm2. AP SPINE L1-L4: Current: BMD 1.087 g/cm2, Z-score -0.1, T-score -0.8, normal, 7.2% decrease from baseline (<5% change is not significant). Baseline: BMD 1.171 g/cm2. IDENTIFIED RISK FACTORS: Menopause, low calcium intake, current smoker. HISTORY OF FRACTURE: None listed. MEDICATIONS: None listed. MM/XR DEXA axial skeleton IMPRESSION: 1. DIAGNOSIS: Osteopenia based on the lowest T-score value of -1.3 in the femoral neck applying World Health Organization criteria. 2. 10-YEAR FRACTURE RISK PREDICTION, FRAX: Major osteoporotic fracture (clinical spine, forearm, hip or shoulder) 6.5%. Hip fracture 0.7%. 3. Treatment Recommendations: NOF guidelines recommend consideration for treatment in postmenopausal women and men age 50 and older presenting with the following: -A hip or vertebral (clinical or morphometric) fracture. -T-score less than or equal to -2.5 at the femoral neck or spine after appropriate evaluation to exclude secondary causes. -Low bone mass at the hip or spine and a 10-year fracture probability by FRAX of greater than or equal to 3% for hip fracture or greater than or equal to 20% for major osteoporotic fracture based on the [place] adapted WHO algorithm. 4. Other Recommendations: All treatment decisions require clinical judgment and consideration of individual patient factors, including patient preferences, comorbidities, previous drug use, risk factors not captured in the FRAX model (e.g. frailty, falls, vitamin D deficiency, increased bone turnover, interval significant decline in bone density) and possible under or overestimation of fracture risk by FRAX. Additional medical evaluation for secondary cause of low bone mineral density may be appropriate. FUTURE SCAN RECOMMENDATION: People with diagnosed cases of osteoporosis or at high risk for fracture should have regular bone mineral density tests. For patients eligible for Medicare, routine testing is allowed once every 2 years. The testing frequency can be increased to one year for patients who have rapidly progressing disease, those who are receiving or discontinuing medical therapy to restore bone mass, or have additional risk factors.
--- NOTE | ~2023-08-09 | MM_ITS ---
EXAMINATION: MM SCREENING DIGITAL BREAST TOMOSYNTHESIS, BILATERAL CLINICAL INFORMATION: Screening. Asymptomatic. COMPARISON: Mammography: This study is compared with prior exams dating back to 2019. TECHNIQUE: Digital breast tomosynthesis is performed in both the craniocaudal and mediolateral oblique views along with computer-aided detection (CAD). Synthesized 2D images are generated from the tomosynthesis. FINDINGS: There are scattered areas of fibroglandular density (ACR BI-RADS breast composition Category b). There are no significant masses, abnormal calcifications, or other abnormalities. There is a tissue marker in the left breast from prior benign percutaneous biopsy. MM/MM tomosynthesis screening BI IMPRESSION: No mammographic evidence of malignancy. ASSESSMENT: BI-RADS BI-RADS 2 - Benign Findings RECOMMENDATION: Routine annual mammography screening. 1 year F/U This examination should not preclude the clinical evaluation of a suspicious palpable abnormality. This patient's information was entered into a reminder system with a target due date for their next mammogram.
== END 2023-08-09 08:19 | disposition home or self-care (01) ==
LOC: HO.MAMMO 08:18
PROVIDERS: PCP Internal Medicine; Visit Provider Internal Medicine
DX: Z12.31 Encounter for screening mammogram for malignant neoplasm of breast (principal); Z13.820 Encounter for screening for osteoporosis; M85.80 Other specified disorders of bone density and structure, unspecified site; Z78.0 Asymptomatic menopausal state; M81.0 Age-related osteoporosis without current pathological fracture
CPT/HCPCS: 77063; 77067; 77080

== ENCOUNTER → 2023-08-09 08:30 | Outpatient (BNV) | payer BC, SELFPAY | PROVIDERS: PCP Internal Medicine; Visit Provider Radiology Diagnostic Radiology | DX: Z12.31 Encounter for screening mammogram for malignant neoplasm of breast (principal) | CPT/HCPCS: 77063; 77067 ==

== ENCOUNTER 2023-08-24 16:17 | Outpatient (REF) | payer BC, SELFPAY ==
--- NOTE | ~2023-08-24 | CT_ITS ---
EXAMINATION: CT LOW-DOSE SCREENING CHEST WITHOUT CONTRAST CLINICAL INFORMATION: Nicotine dependence, cigarettes, uncomplicated. Recently quit 05/2023. History of 40 pack years. 72.5 kg. COMPARISON: 05/07/[address] lung screening. TECHNIQUE: Multidetector volumetric CT imaging of the chest is performed on a Siemens SOMATOM Definition scanner without contrast using low dose technique. Additional 2D coronal and sagittal reformatted images and axial 3D maximum intensity projection (MIP) images are generated on the CT workstation. This CT examination was performed using dose optimization techniques as appropriate, variously including the following: *Automated exposure control *Adjustment of mA and/or kV according to patient size (this includes techniques or standardized protocols for targeted exams where dose is matched to indication/reason for exam; i.e. extremities or head) *Use of iterative reconstruction technique TOTAL EXAM DLP: 48 mGy-cm. FINDINGS: PULMONARY NODULES: (As seen on series 5): -There are scattered tiny calcified and noncalcified 2 mm nodules present, unchanged. These are benign. -4 mm calcified granuloma superior segment right lower lobe, posterior aspect (image 219), stable. -4 mm calcified granuloma lateral left upper lobe anteriorly (image 171), stable. -No new or enlarging suspicious nodules. LUNGS: -There is predominant paraseptal emphysema present with upper lobe predominance, with several subpleural apical bullae and blebs left greater than right. -Airspace consolidations or abnormal groundglass opacities. Mild linear scarring in the lingula, right middle lobe, and medial left lower lobe. -No pleural effusions or pleural masses. -Trachea and central airways are patent. The small airways image normally. MEDIASTINUM: -No suspicious mediastinal or hilar lymphadenopathy. -Aorta is nonaneurysmal with moderate calcification. -Main pulmonary artery is normal in size. -Heart size is normal. No pericardial effusion. -Esophagus demonstrates a probable small type I hiatus hernia. It is otherwise minimally patulous. CORONARY ARTERY CALCIFICATION: Stent versus calcification in the proximal LAD. There is otherwise mild three-vessel coronary calcification. THYROID GLAND: Unremarkable to the extent seen. CHEST WALL/AXILLA: No masses or abnormal lymph nodes. UPPER ABDOMEN: -Calcified gallstones layering dependently within a normal-appearing partially imaged gallbladder. -Small type I hiatus hernia. -Remainder of the imaged upper abdominal contents appear normal within confines of low-dose technique. OSSEOUS STRUCTURES: -No suspicious lytic or blastic bone lesions. -Mild degenerative spinal changes. CT/CT lung screening IMPRESSION: 1. Scattered calcified and noncalcified 2-4 mm granulomata which are stable and benign. 2. There are no new or enlarging nodules. 3. Moderate for dominantly paraseptal emphysema with apical left bullous changes. No superimposed active pulmonary disease. 4. Calcified gallstones. 5. Small type I hiatus hernia. 6. Additional ancillary findings as discussed in the body of the report. ASSESSMENT: 1. Lung-RADS Category 2: Benign appearance or behavior of nodules. 2. Lung-RADS Category S: None. RECOMMENDATION: Continued routine annual low-dose CT lung screening in 1 year is recommended. An order for CT CHEST LOW DOSE CANCER SCREENING ([id number]) can be placed. Electronically signed by: Berry Truong MD 10/05/2023 11:37 AM EDT
== END 2023-08-24 16:18 | disposition home or self-care (01) ==
LOC: HO.CT 16:17
PROVIDERS: PCP Internal Medicine; Visit Provider Internal Medicine
DX: Z12.2 Encounter for screening for malignant neoplasm of respiratory organs (principal); F17.210 Nicotine dependence, cigarettes, uncomplicated
CPT/HCPCS: 71271

== ENCOUNTER → 2023-08-24 16:19 | Outpatient (BNV) | payer BC, SELFPAY | PROVIDERS: PCP Internal Medicine; Visit Provider Radiology Diagnostic Radiology | DX: Z12.2 Encounter for screening for malignant neoplasm of respiratory organs (principal); F17.210 Nicotine dependence, cigarettes, uncomplicated | CPT/HCPCS: 71271 ==

== ENCOUNTER 2023-09-19 09:11 | Outpatient (REF) | payer BC, SELFPAY ==
[2023-09-19 10:37] LABS: Parathyroid Hormone Intact 82.6 pg/mL (8.7-77.1)
[2023-09-19 10:52] LABS: Free T4 (Free Thyroxine) 0.92 ng/dL (0.71-1.85); Thyroid Stimulating Hormone 3.69 uIU/mL (0.32-4.0)
[2023-09-20 13:22] LABS: Calcium, Ionized 5.2 mg/dL (4.7-5.5)
== END 2023-09-19 09:12 | disposition home or self-care (01) ==
LOC: HO.LAB 09:11
PROVIDERS: PCP Internal Medicine; Visit Provider Internal Medicine
DX: E83.52 Hypercalcemia (principal); E03.9 Hypothyroidism, unspecified
CPT/HCPCS: 36415; 82310; 82330; 83970; 84439; 84443

== ENCOUNTER 2023-12-06 14:41 | Outpatient (AMB) | payer BC, SELFPAY ==
[2023-12-06 14:51] VITALS: BP 144/76; PULSE 87; O2SAT 94; BMI 31.7
--- NOTE | 2023-12-06 14:51 | MHC.PC.OV ---
Vital Signs 12/06/23 14:51 Height 5 ft 1 in Weight 168 lb BMI 31.7 BP 144/76 H Blood Pressure Location Lt brachial Position Sitting Pulse 87 Pulse Source Pulse Oximeter Pulse Oximetry (%) 94 Oxygen Delivery Method Room Air Intake Visit Reasons: hypothyroid [employer] Supervisor Required: No Allergies amoxicillin Allergy (Unknown, Verified 12/06/23 14:51) Unknown itraconazole [Sporanox] Allergy (Unknown, Verified 12/06/23 14:51) ear swelling metronidazole [Flagyl] Allergy (Unknown, Verified 12/06/23 14:51) stomach upset pseudoephedrine [Sudafed] Adverse Reaction (Unknown, Verified 12/06/23 14:51) rapid heart rate Tobacco use date assessed: 06/27/23 Dental Screening Dental Screen Date: 06/27/23 HPI hypothyroid HPI Details 58-year-old obese female smoker with asthma hypercholesterolemia hypothyroid and osteopenia coming in for follow-up. Last seen in June 2023 and mammogram is due bone density is up-to-date colonoscopy done in 2018. Patient had a CT scan done 08/24/2023 showing scattered calcified and noncalcified 2.4 mm granulomata stable and benign no no nodules moderate emphysema with bullous changes cholelithiasis, small type hiatal hernia. [facility] Medical History Asthma Blood pressure elevated without history of HTN Cholelithiasis Discoid lupus History of gestational diabetes Hypercholesterolemia Hyperplastic colon polyp (~2017) Hypothyroid Nicotine dependence, cigarettes, uncomplicated Osteopenia (~2018) Vitamin D deficiency Surgical History History of colonoscopy History of section Family History (Updated 03/24/23 @ 12:10 by Trevor Bell MD) Father Myocardial infarction Mother CHF (congestive heart failure) Paternal Aunt Pancreatic cancer Sister Brain tumor Myocardial infarction Substance abuse Sister Heart problem Paternal Grandmother Lung cancer Sister Malignant glucagonoma Brother Substance abuse Maternal Uncle Substance abuse Social History (Updated 03/24/23 @ 12:12 by Trevor Bell MD) Housing: House Alcohol intake: current Comment: once Q 6 month 2 drinks Patient Tobacco Use Status: Current everyday Tobacco user Tobacco use type: Cigarette Cigarette Packs Per Day: 0.5 Cigarettes Per Day: 10 Years Smoked: (onset 11yo, 1ppd x 45yrs, now 1/2ppd, 40pyh)- smoking 11-12 cigarettes a e-Cigarette/Vaping Use: Never Used Second Hand Smoke Exposure: No Current occupational status: employed Cognitive needs: No Hearing needs: No Vision needs: Yes Female Reproductive History Menstrual Age of Menarche: 16 Questionnaire Thrive Questionnaire Date Thrive assessed: 03/24/23 AUDIT C Alcohol Use Questionnaire (AUDIT-C) 1. How often do you have a drink containing alcohol?: Monthly or less 2. How many drinks containing alcohol do you have on a typical day when you are drinking?: 1 or 2 3. How often do you have six or more drinks on one occasion?: Never Total Score: 1 CAROLYN-7 AMB Questionnaire CAROLYN-7 Date CAROLYN - 7 assessed: 03/24/23 Source: Developed by Drs. Doni Aponte, Gisele Maxwell, Ferd Cortez and colleagues, with an educational micah from [employer]. Physical exam (Primary Care) Vital Signs: Last Vital Signs Pulse 87 12/06/23 14:51 BP 144/76 H 12/06/23 14:51 Pulse Ox 94 12/06/23 14:51 Oxygen Delivery Method Room Air 12/06/23 14:51 BMI result Body Mass Index 31.7 Tobacco/Smoking Status: Tobacco use Status Tobacco use date assessed 06/27/23 12/06/23 14:51 Patient Tobacco Use Status Current everyday Tobacco 12/06/23 14:51 Tobacco use type Cigarette 12/06/23 14:51 e-Cigarette/Vaping Use Never Used 12/06/23 14:51 Thrive Assessment: Date of Thrive Assessment Date Thrive assessed 03/24/23 12/06/23 14:51 Const General: alert; No acute distress Eyes Conjunctivae: conjunctivae normal Resp Auscultation: clear to auscultation bilaterally Cardio Rate: regular rate Rhythm: regular rhythm GI Inspection: Yes normal to inspection Extrem General: Yes normal to inspection and No edema Coding Level of Care Code Est Pt Level 4 (94287) Diagnoses Nicotine dependence, cigarettes, uncomplicated F17.210 Osteopenia M85.80 Hypercholesterolemia E78.00 Acquired hypothyroidism E03.9 Hypothyroidism type: acquired Generalized anxiety disorder F41.1 COPD (chronic obstructive pulmonary disease) J44.9 Assessment & Plan Assessment & Plan (1) Nicotine dependence, cigarettes, uncomplicated: Comment: (current smoker - onset 11yo, 1ppd x 45yrs, now 1/2ppd, 40pyh) May 10 stop Code(s): F17.210 - Nicotine dependence, cigarettes, uncomplicated Category: Medical Plan: Lung cancer screening program CT scan done showing stable nodules. (2) Osteopenia: Onset Date: ~2017 Comment: (Bone Dexa Femoral T-score: -1.1 on 01/20/18) Code(s): M85.80 - Other specified disorders of bone density and structure, unspecified site Category: Medical Plan: Bone density done showing osteopenia with spine decreasing 7% (3) Hypercholesterolemia: Code(s): E78.00 - Pure hypercholesterolemia, unspecified Category: Medical Plan: Avoid fried foods, chicken skin, eggs, butter margarine, pastries and meat. Be it pork or beef they have a lot of cholesterol LDL goal of less than 130 and triglyceride of less than 150 on simvastatin 10 mg at bedtime (4) Hypothyroid: Code(s): E03.9 - Hypothyroidism, unspecified Category: Medical Qualifiers: Hypothyroidism type: acquired Qualified Code(s): E03.9 - Hypothyroidism, unspecified Plan: Continue with thyroid medication (5) Generalized anxiety disorder: Code(s): F41.1 - Generalized anxiety disorder Category: Medical Plan: Stable (6) COPD (chronic obstructive pulmonary disease): Code(s): J44.9 - Chronic obstructive pulmonary disease, unspecified Category: Medical Plan: CT scan showing COPD
== END 2023-12-06 15:36 | disposition home or self-care (01) ==
LOC: HO.HMCH 14:42
PROVIDERS: PCP Internal Medicine; Visit Provider Internal Medicine
DX: J44.9 Chronic obstructive pulmonary disease, unspecified (principal); F17.210 Nicotine dependence, cigarettes, uncomplicated; M85.80 Other specified disorders of bone density and structure, unspecified site; E78.00 Pure hypercholesterolemia, unspecified; E03.9 Hypothyroidism, unspecified; F41.1 Generalized anxiety disorder

== ENCOUNTER → 2023-12-06 14:41 | Outpatient (BNVA) | payer BC, SELFPAY | PROVIDERS: PCP Internal Medicine; Visit Provider Internal Medicine ==

== ENCOUNTER 2024-08-15 07:51 | Outpatient (REF) | payer BC, SELFPAY ==
--- OUTSIDE RECORDS SUMMARY | 2024-08-15 07:53 | XMS_ITS | Encounter Summary ---
Author Organization [facility] Address [address] [place] [address] Care Team Providers Care Internet Marketing Manager Name Role Phone Trevor Bell MD Primary Care Provider [phone] Encounter Details Date Type Department Care Team (Latest Contact Info) Description 03/28/2024 Lab Requisition [facility] - Main Lab [address] [place] [address] Ryder Holder MD [address] [address] Encounter for gynecological examination (general) (routine) without abnormal findings Social History Tobacco Use Types Packs/Day Years Used Date Smoking Tobacco: Never Assessed Comments Unknown Sex and Gender Information Value Date Recorded Sex Assigned at Not on file Legal Sex Female 7:32 AM EST Gender Identity Not on file Sexual Orientation Not on file documented as of this encounter Plan of Treatment Not on file documented as of this encounter Procedures Procedure Name Priority Date/Time Associated Diagnosis Comments PAP SMEAR Routine 03/27/2024 12:00 AM EST Encounter for gynecological examination (general) (routine) without abnormal findings documented in this encounter Results * Pap smear (03/27/2024 12:00 AM EST) Interpretation Negative for intraepithelial lesion or malignancy 03/28/2024 4:37 PM [facility] General Categorization Negative 03/28/2024 4:37 PM [facility] Specimen Adequacy Satisfactory for evaluation, endocervical/rubin sformation zone component present 03/28/2024 4:37 PM [facility] Pap Methodology Liquid Based Pap Test 03/28/2024 4:37 PM EST [facility] Disclaimer The Pap test is a screening test which carries an inherent false negative rate. These test results should be correlated with the patient's clinical findings and history. This Pap test was processed using an automated screening system. Technical cytopathology services provided by [facility], at [address] [place] [address] (CLIA # [id number]/Dax Cannon MD, Enrollment Specialist.) 03/28/2024 4:37 PM EST [facility] Console Pap Interpretation Reported 03/28/2024 4:37 PM EST [facility] Brushing/Spatula Cervix uteri structure / Unknown 03/27/2024 03/28/2024 7:41 AM EST us Ryder Holder MD LAB CYTOLOGY ORDERABLES Final Result [facility] [address] [place] [address], documented in this encounter Visit Diagnoses Diagnosis Encounter for gynecological examination (general) (routine) without abnormal findings documented in this encounter Care Teams Internet Marketing Manager Relationship Specialty Start Date End Date Trevor Bell MD PCP - General Internal Medicine 03/28/24 documented as of this encounter
--- OUTSIDE RECORDS SUMMARY | 2024-08-15 07:53 | XMS_ITS | Patient Health Record ---
Author Organization [facility] Address [address] [place] [address] Care Team Providers Care Noc Engineer Name Role Phone Trevor Bell MD Primary Care Provider Doni Simons [phone] Allergies Allergen (clinical drug ingredient) Drug/Non Drug Allergy documented on EMR Reaction Allergy Type Onset Date Status Neosporin Unknown Drug Allergy Active metronidazole Flagyl Unknown Drug Allergy Act pa[place] amoxicillin Amoxicillin Unknown Drug Allergy Act [place] seasonal (uncoded) Unknown Allergy A ctive Reason For Referral No Information Medications Medication SIG (Take, Route, Frequency, Duration) Notes Start Date End Date Status Ibuprofen 200 MG 1 tablet with food o r milk as needed Orally prn Active Betamethasone Dipropionate 0.05 % APPLY TWICE DAILY TO ALL INVOLVED AREAS OF NECK AND FACE TO RELIEVE ITCHING AFTER COLD SOAKS External prn Active Chantix 0.5 MG 1 tablet Orally Once a day Active Levoxyl 112 MCG 1 tablet on an empty stomach in the morning Orally Once a day Active Social History Tobacco Use: Social History Observation Description Date Details (start date - stop date) Former Smoker NA - NA Tobacco Use/Smoking Question Answer Notes Patient is a former smoker How long has it been since you last smoked? < 1 month Alcohol Screen Question Answer Notes Did you have a drink containing alcohol in the p ast year? No Points 0 Interpretation Negative Section Notes: Nonsmoker except for a coupl e of puffs per day----stopped in 09/2017; no sig alcohol Problems Problem Type SNOMED Code ICD Code Onset Dates Problem Status W/U Status Risk Notes Problem 289554516 Encounter for screening for malignant neoplasm of colon (Z12.11) Active confirmed Problem 24823837 Pharyngoesophage al dysphagia (R13.14) Active confirmed Plan Of Treatment Pending Test Test Name Order Date GI BIOPSY 12/12/2017 XR BARIUM SWALLOW-ESOPHAGUS 10/19/2017 Future Test Test Name Order Date COLONOSCOPY 10/19/2017 Insurance Providers Payer Name Payer Address Payer Phone Subscriber Number Group Number Insured Name Patient Relationship to Insured Coverage Start Date Coverage End Date [employer] [address] [place], [place] [address] [id number] JOSEPH RODRIGUEZ Self - patient is the insured Medical (General) History Medical History History ICD Code Denies [place],DM,CVA,Lung disease,renal dise ase Hypothyroidism Discoid lupus Surgical History Surgery Date(Month/Year) [place] teeth extraction 1985 2010
== END 2024-08-15 07:52 | disposition home or self-care (01) ==
LOC: HO.MAMMO 07:51
PROVIDERS: PCP Internal Medicine; Visit Provider Internal Medicine
DX: Z12.31 Encounter for screening mammogram for malignant neoplasm of breast (principal)
CPT/HCPCS: 77063; 77067

== ENCOUNTER → 2024-08-15 08:00 | Outpatient (BNV) | payer BC, SELFPAY | PROVIDERS: PCP Internal Medicine; Visit Provider Internal Medicine | DX: Z12.31 Encounter for screening mammogram for malignant neoplasm of breast (principal) | CPT/HCPCS: 77063; 77067 ==

== ENCOUNTER 2024-09-24 13:10 | Outpatient (REF) | payer BC, SELFPAY ==
--- NOTE | ~2024-09-24 | CT_ITS ---
EXAMINATION: CT LOW-DOSE SCREENING CHEST WITHOUT CONTRAST CLINICAL INFORMATION: 58-year-old female, smoker, quit 1 year ago, 46 pack years. Lung cancer screening. COMPARISON: 08/24/2023. 07/07/2022. TECHNIQUE: Multidetector volumetric CT imaging of the chest is performed on a Siemens SOMATOM Definition scanner without contrast using low dose technique. Additional 2D coronal and sagittal reformatted images and axial 3D maximum intensity projection (MIP) images are generated on the CT workstation. This CT examination was performed using dose optimization techniques as appropriate, variously including the following: *Automated exposure control *Adjustment of mA and/or kV according to patient size (this includes techniques or standardized protocols for targeted exams where dose is matched to indication/reason for exam; i.e. extremities or head) *Use of iterative reconstruction technique FINDINGS: PULMONARY NODULES: (As seen on series 5): -There are scattered tiny calcified and noncalcified 2 mm nodules present, unchanged. These are benign. -3 mm calcified granuloma superior segment right lower lobe, posterior aspect (image 157), stable. -3 mm calcified granuloma lateral left upper lobe anteriorly (image 157), stable. -No new or enlarging suspicious nodules. LUNGS: -There is paraseptal emphysema present with upper lobe predominance, with several subpleural apical bullae and blebs left greater than right. -No airspace consolidations or abnormal groundglass opacities. Mild linear scarring in the lingula, right middle lobe, and medial left lower lobe. -No pleural effusions or pleural masses. -Trachea and central airways are patent. The small airways appear normal. MEDIASTINUM: -No suspicious mediastinal or hilar lymphadenopathy. -Aorta is nonaneurysmal with moderate calcification. -Main pulmonary artery is normal in size. -Heart size is normal. No pericardial effusion. -Esophagus demonstrates a probable small type I hiatus hernia. CORONARY ARTERY CALCIFICATION: Mild three-vessel coronary calcification. THYROID GLAND: Unremarkable to the extent seen. CHEST WALL/AXILLA: No masses or abnormal lymph nodes. UPPER ABDOMEN: -Calcified gallstones layering dependently within a normal-appearing partially imaged gallbladder. -Small type I hiatus hernia. -Remainder of the imaged upper abdominal contents appear normal within confines of low-dose technique. OSSEOUS STRUCTURES: -No suspicious lytic or blastic bone lesions. -Mild degenerative spinal changes. CT/CT lung screening IMPRESSION: 1. Scattered calcified and noncalcified 2-4 mm granulomata which are stable and benign. 2. There are no new or enlarging nodules. 3. Moderate paraseptal emphysema with apical left bullous changes. No superimposed active pulmonary disease. 4. Cholelithiasis. 5. Small type I hiatus hernia. ASSESSMENT: 1. Lung-RADS Category 2: Benign appearance or behavior of nodules. 2. Lung-RADS Category S: None. RECOMMENDATION: Continued routine annual low-dose CT lung screening in 1 year is recommended. An order for CT CHEST LOW DOSE CANCER SCREENING ([id number]) can be placed. Electronically signed by: Berry Truong MD 09/24/2024 01:41 PM EDT
--- OUTSIDE RECORDS SUMMARY | 2024-09-24 14:04 | XMS_ITS | Patient Health Record ---
Author Organization [facility] Address [address] [place] [address] Care Team Providers Care Extracting Machine Operator Name Role Phone Trevor Bell MD Primary Care Provider Doni Simons [phone] Allergies Allergen (clinical drug ingredient) Drug/Non Drug [...] Problem Status W/U Status Risk Notes Problem [id number] Encounter for screening for malignant neoplasm of colon (Z12.11) Active confirmed Problem 99985327 Pharyngoesophage al dysphagia (R13.14) Active confirmed Plan Of Treatment Pending Test Test Name Order Date GI BIOPSY 12/12/2017 XR BARIUM SWALLOW-ESOPHAGUS 10/19/2017 Future Test Test Name Order Date COLONOSCOPY 10/19/2017 Insurance Providers Payer Name Payer Address Payer Phone Subscriber Number Group Number Insured Name Patient Relationship to Insured Coverage Start Date Coverage End Date [employer] [address] [place] [address] [phone] [id number] JOSEPH RODRIGUEZ Self - patient is the insured Medical (General) History Medical History History ICD Code Denies [place],DM,CVA,Lung disease,renal dise ase Hypothyroidism Discoid lupus Surgical History Surgery Date(Month/Year) [place] teeth extraction 1985 2010
--- OUTSIDE RECORDS SUMMARY | 2024-09-24 14:04 | XMS_ITS | Encounter Summary ---
Author Organization [facility] Address [address] [place] [address] Care Team Providers Care Leather Etcher Name Role Phone Trevor Bell MD Primary Care Provider [phone] Encounter Details Date Type Department Care Team (Latest Contact Info) Description 03/28/2024 Lab Requisition [facility] - Main Lab [address] [place] [address] Ryder Holder MD [address] [address] Encounter for gynecological examination (general) [...] screening system. Technical cytopathology services provided by [facility], at [address] [place] [address] (CLIA # [id number]/Dax Cannon MD, Maintenance Service Supervisor.) 03/28/2024 4:37 PM EST [facility] Console Pap Interpretation Reported 03/28/2024 4:37 PM EST [facility] Brushing/Spatula Cervix uteri structure / Unknown 03/27/2024 03/28/2024 7:41 AM EST us Ryder Holder MD LAB CYTOLOGY ORDERABLES Final Result [facility] [address] [place] [address], documented in this encounter Visit Diagnoses Diagnosis Encounter for gynecological examination (general) (routine) without abnormal findings documented in this encounter Care Teams Leather Etcher Relationship Specialty Start Date End Date Trevor Bell MD PCP - General Internal Medicine 03/28/24 documented as of this encounter
--- OUTSIDE RECORDS SUMMARY | 2024-09-24 14:04 | XMS_ITS | Clinical Summary ---
Author Organization [facility] Address [address] [place] [address] Phone Care Team Providers Care Mountain Or Glacier Guide Name Role Phone Pcp, Unknown Unavailable Unavailable Allergies Active Allergy Reactions Criticality Noted Date Comments Amoxicillin Rash Low 03/22/2017 Metronidazole GI Upset 03/22/2017 Stomach pain Aqzsmvdu-Dfowppzdqv-Xecngrc in Other (See Comments) 03/22/2017 Blisters Pseudoephedrine Hcl Other (See Comments) 2017 Racing heart Medications hydroxychloroqu ine (PLAQUENIL) 200 mg tablet 1.5 tablet Activ e levothyroxine (LEVOXYL) 112 MCG tablet take 1 tablet by mouth once daily every morning TAKE ON AN EMPTY STOMACH Active clotrimazole (LOTRIMIN AF, CLOTRIMAZOLE,) 1 % cream 1 application to affected area 5 Active Immunizations Immunization Administration Dates Next Due COVID-19 (Pre-11/29) Pfizer Vaccine, mRNA, PF 11/15/2020,05/14/2020,04/23/2020 INFLUENZA, SPLIT VIRUS, TRIVALENT PF 11/21/2016 Influenza Quadrivalent Preservative Free IM 05/2019 Influenza Quadrivalent w/ Preservative IM 2018,11/22/2017 Tdap 12/15/2010 Family History Medical History Relation Comments Hyperlipidemia Brother CV disease Father triple bypass Heart failure Mother at 7 5 years old Relation Status Comments Brother Alive Daughter Alive Father Alive Mother Sister 1 Alive Sister 2 Alive Sister 3 Alive Sister 4 Alive Son 1 Alive Son 2 Alive Social History Tobacco Use Types Packs/Day Years Used Date Smoking Tobacco: Every Day Cigarettes 0.8 33 Smokeless Tobacco: Never Education Answer Date Recorded Are you interested in more education? Not on glenroy e 06/04/2022 Are you concerned about learning? Not on file 06/04/2022 No 06/04/2022 No 06/04/2022 Digital Access Answer Date Recorded No 07/05/2022 No 07/05/2022 Reliable internet access at home? Not on file 07/05/2022 Device with a working camera? Not on file Comments Unknown Sex and Gender Information Value Date Recorded Sex Assigned at Not on file Legal Sex Female 9:38 PM EDT Gender Identity Not on file Sexual Orientation Not on file Last Filed Vital Signs Vital Sign Reading Time Taken Comments Blood Pressure 120/70 05/06/2015 4:17 AM EDT Pulse 80 05/06/2015 4:17 AM EDT Temperature 36.7 C (98 F) 05/06/2015 4:17 AM EDT Respiratory Rate 16 05/06/2015 4:17 AM EDT Oxygen Saturation - - Inhaled Oxygen Concentration - - Weight 71.7 kg (158 lb) 05/06/2015 4:17 AM EDT Height 157.5 cm (5' 2 ) 05/06/2015 4:17 AM EDT Body Mass Index 28.9 05/06/2015 4:17 AM EDT Plan of Treatment Health Maintenance Due Date Last Done Comments TSH LEVEL 1966 DEPRESSION SCREENING 1978 SMOKING Hx and SMOKELESS TOBACCO SCREENING 11/19/1979 HEPATITIS C SCREENING 1984 HIV ONE-TIME SCREENING (18-6 5 YEARS) 1984 PNEUMOCOCCAL VACCINES (50+ years) (1 of 2 - PCV) 1985 COLOGUARD 11/19/2011 COLONOSCOPY 11/19/2011 COLORECTAL CANCER SCREENING 11/19/2011 FIT TEST 11/19/2011 FOBT 11/19/2011 SIGMOIDOSCOPY 11/19/2011 VIRTUAL COLONOSCOPY 11/19/2011 ZOSTER VACCINES (1 of 2) 2016 MAMMOGRAM 05/28/2017 05/29/2015 PAP SMEAR 05/28/2017 05/28/2014 Adult Td,Tdap Booster 12/15/2020 12/15/2010 LIPID PANEL 03/29/2021 03/29/2016 COVID-19 VACCINE (4 - 2023-2 5 season) 2023 11/15/2020, 05/14/2020, 04/23/2020 HEPATITIS A VACCINES Aged Out No long er eligible based on patient's age to complete this topic HIB VACCINES Aged Out No longer eligi ble based on patient's age to complete this topic MENINGOCOCCAL VACCINES (ACWY) Aged Out No longer eligible based on patient's age to complete this topic MENINGOCOCCAL VACCINES (B) Aged Out N o longer eligible based on patient's age to complete this topic Medical Devices Not on file Procedures Procedure Name Priority Date/Time Associated Diagnosis Comments OUTSIDE LDL Routine 03/29/2016 from Last 3 Months or Most Recently Relevant to Health Maintenance Results * (ABNORMAL) Outside LDL (03/29/2016) LDL - External 0(A) 50 - 250 mg/ml us Historical Provider LAB BLOOD ORDERABLES Cielo l Result from Last 3 Months or Most Recently Relevant to Health Maintenance Care Teams Mountain Or Glacier Guide Relationship Specialty Start Date End Date Pcp, Unknown 09/04/21 Additional Source Comments The information contained in this document represents components of the legal health record. It is not the complete legal health record.[facility]
== END 2024-09-24 13:11 | disposition home or self-care (01) ==
LOC: HO.CT 13:10
PROVIDERS: PCP Internal Medicine; Visit Provider Physician Assistant Medical
DX: Z12.2 Encounter for screening for malignant neoplasm of respiratory organs (principal); F17.210 Nicotine dependence, cigarettes, uncomplicated
CPT/HCPCS: 71271

== ENCOUNTER → 2024-09-24 13:15 | Outpatient (BNV) | payer BC, SELFPAY | PROVIDERS: PCP Internal Medicine; Visit Provider Radiology Diagnostic Radiology | DX: F17.210 Nicotine dependence, cigarettes, uncomplicated (principal) | CPT/HCPCS: 71271 ==

== ENCOUNTER 2024-11-01 11:12 | Outpatient (AMB) | payer BC, SELFPAY ==
--- NOTE | 2024-11-01 11:27 | A.OFFPC_ITS ---
Vital Signs 11/01/24 11:28 Height 5 ft 1 in Weight 157 lb BMI 29.7 BP 122/70 Blood Pressure Location Lt brachial Position Sitting Pulse 87 Pulse Source Pulse Oximeter Pulse Oximetry (%) 97 Oxygen Delivery Method Room Air Intake Visit Reasons: Annual PE Allergies amoxicillin Allergy (Unknown, Verified 11/01/24 11:28) Unknown itraconazole (Sporanox) Allergy (Unknown, Verified 11/01/24 11:28) ear swelling metronidazole (Flagyl) Allergy (Unknown, Verified 11/01/24 11:28) stomach upset pseudoephedrine (Sudafed) Adverse Reaction (Unknown, Verified 11/01/24 11:28) rapid heart rate Medication List - Last Reconciled 11/01/24 by Trevor Bell MD betamethasone dipropionate 0.05% 1 appl topical BID clobetasol 0.05% 1 appl topical BID fexofenadine ([place] Allergy) 180 mg PO DAILY ibuprofen 400 mg PO Q8H Levoxyl (levothyroxine) 112 mcg PO QAM NS simvastatin 10 mg PO BEDTIME tacrolimus 0.1% 1 appl topical BID Tobacco use date assessed: 11/01/24 Dental Screening Dental Screen Date: 11/01/24 Did you have a dental visit in the last 12 months?: Yes Did you have a dental problem in the last 6 months where you did not have access to dental care?: No Was dental information given to patient?: Patient has dentist HPI Annual PE HPI Details Left big toe nubness and when sneezing having pin and needles on both arms [facility] Medical History (Updated 11/01/24 @ 11:58 by Trevor Bell MD) Asthma Nicotine dependence, cigarettes, uncomplicated Hyperplastic colon polyp (~2017) Osteopenia (~2018) Blood pressure elevated without history of HTN Cholelithiasis History of gestational diabetes Discoid lupus Hypercholesterolemia Vitamin D deficiency Hypothyroid Surgical History History of colonoscopy History of section Family History (Updated 03/24/23 @ 12:10 by Trevor Bell MD) Father Myocardial infarction Mother CHF (congestive heart failure) Paternal Aunt Pancreatic cancer Sister Brain tumor Myocardial infarction Substance abuse Sister Heart problem Paternal Grandmother Lung cancer Sister Malignant glucagonoma Brother Substance abuse Maternal Uncle Substance abuse Social History (Updated 11/01/24 @ 11:48 by Trevor Bell MD) Housing: House Alcohol intake: current Comment: once Q 6 month 2 drinks, /once a year Patient Tobacco Use Status: Current everyday Tobacco user Tobacco use type: Cigarette Cigarette Packs Per Day: 0.5 Cigarettes Per Day: 10 Years Smoked: (onset 11yo, 1ppd x 45yrs, now 1/2ppd, 40pyh)- smoking 11-12 cigarettes a e-Cigarette/Vaping Use: Never Used Second Hand Smoke Exposure: No Current occupational status: employed Cognitive needs: No Hearing needs: No Vision needs: Yes Female Reproductive History Menstrual Age of Menarche: 16 Questionnaire PHQ-9 Over the last 2 weeks, how often have you been bothered by any of the following problems? 1. Little interest or pleasure in doing things: not at all 2. Feeling down, depressed, or hopeless: not at all 3. Trouble falling or staying asleep, or sleeping too much: not at all 4. Feeling tired or having little energy: several days 5. Poor appetite or overeating: not at all 6. Feeling bad about yourself - or that you are a failure or have let yourself or your family down: not at all 7. Trouble concentrating on things, such as reading the newspaper or watching television: not at all 8. Moving or speaking so slowly that other people could have noticed. Or the opposite - being so fidgety or restless that you have been moving around a lot more than usual: not at all 9. Thoughts that you would be better off or of hurting yourself in some way: not at all Total score: 1 Depression Screening Interpretation: Positive Depression Screening Done: Yes Source: Developed by Drs. Doni Aponte, Gisele Maxwell, Fred Cortez and colleagues, with an educational micah from [employer]. Thrive Questionnaire Date Thrive assessed: 03/19/24 I am a: Patient What is your living situation today?: I have a steady place to live Within the past 12 months, did the food you bought not last and you didn't have the money to get more?: Never true Within the past 12 months, did you worry whether your food would run out before you got money to buy more?: Never true Do you have trouble paying for medicines?: No Do you have trouble getting transportation to medical appointments?: No Do you have trouble paying your heating and electricity bill?: No Do you have trouble taking care of your child, family member or friend?: No Do you have trouble with day-to-day activities such as bathing, preparing meals, shopping, managing finances, etc.?: No Are you currently unemployed and looking for a job?: No Are you interested in more education?: No Please select the resources that you would like help with: None Currently or been in a relationship where the following occur: No concerns reported THRIVE Score: 0 AUDIT C Alcohol Use Questionnaire (AUDIT-C) 1. How often do you have a drink containing alcohol?: Monthly or less 2. How many drinks containing alcohol do you have on a typical day when you are drinking?: 1 or 2 3. How often do you have six or more drinks on one occasion?: Never Total Score: 1 CAROLYN-7 AMB Questionnaire CAROLYN-7 Date CAROLYN - 7 assessed: 11/01/24 Feeling nervous, anxious, or on edge: 0 = Not at all Not being able to stop or control worryin = Not at all Worrying too much about different things: 0 = Not at all Trouble relaxin = Not at all Being so restless that it is hard to sit still: 0 = Not at all Becoming easily annoyed or irritable: 0 = Not at all Feeling afraid as if something awful might happen: 0 = Not at all Total CAROLYN-7 score (0-4 normal; 5-9 mild; 10-14 moderate; 15-21 severe): 0 Source: Developed by Drs. Doni Aponte, Gisele Maxwell, Fred Cortez and colleagues, with an educational micah from [employer]. Review of Systems Const Denies poor appetite and Denies weakness Eyes Denies no additional complaints ENT Reports Normal hearing present, Denies dizziness, Denies nasal congestion, Denies tinnitus and Denies sore throat Card Denies chest pain, Denies syncope, Denies rapid heart rate and Denies dyspnea Resp Denies cough and Denies dyspnea GI Denies change in stool character, Reports constipation, Denies diarrhea, Denies nausea and Denies vomiting Denies urinary frequency, Denies difficulty voiding and Denies dysuria Neuro Reports Normal hearing present, Denies confusion, Denies dizziness, Denies syncope and Denies weakness Psych Denies confusion Physical exam (Primary Care) Vital Signs: Last Vital Signs Pulse 87 11/01/24 11:28 BP 122/70 11/01/24 11:28 Pulse Ox 97 11/01/24 11:28 Oxygen Delivery Method Room Air 11/01/24 11:28 BMI result Body Mass Index 29.7 Tobacco/Smoking Status: Tobacco use Status Tobacco use date assessed 11/01/24 11/01/24 11:30 Patient Tobacco Use Status Current everyday Tobacco 11/01/24 11:48 Tobacco use type Cigarette 11/01/24 11:48 e-Cigarette/Vaping Use Never Used 11/01/24 11:48 PHQ-9: PHQ-9 Score PHQ-9: Total score 1 11/01/24 11:42 Depression Screening Interpretation: Positive Thrive Assessment: Date of Thrive Assessment Date Thrive assessed 03/19/24 11/01/24 11:30 Currently or been in a relationship where the following occur: No concerns reported Const General: alert and awake; No confusion Orientation/consciousness: No confusion HENMT Head: Yes normocephalic Ears: external ears normal and TM's normal bilaterally Face and sinus: Yes normal facial exam Mouth: moist mucous membranes Throat: Yes tonsils normal Eyes Conjunctivae: conjunctivae normal Pupils: Equal, round and reactive pupils present and Pupil accommodation reflex normal Direct Ophthalmoscopy: normal light reflex Neck Neck: No lymphadenopathy Thyroid: Thyroid normal Chest Chest palpation & inspection: normal inspection of the chest Resp Effort & Inspection: normal respiratory effort and no audible wheezes Auscultation: clear to auscultation bilaterally, no crackles, no wheezes and lung sounds not diminished Cardio Rate: regular rate Rhythm: regular rhythm Peripheral pulses: radial pulses present and dorsalis pedis present GI Palpation (GI): no masses Auscultation: normal bowel sounds and normoactive bowel sounds Rectal Exam - Female: deferred Skin General skin exam: no rashes or lesions noted Rashes: no rashes Neuro General: deep tendon reflexes 2+ bilaterally and No confusion Cranial nerves: Yes Equal, round and reactive pupils present, Yes Midline tongue present, Yes Normal hearing present and Yes Ability to bilaterally elevate shoulders present Cognition (Neuro): normal cognition Gait exam (Neuro): Normal gait present Motor exam (neuro): 5/5 motor strength present throughout Deep tendon reflexes (DTR's): Right brachioradialis reflex intensity grade: 2+, Left brachioradialis reflex intensity grade: 2+, Right patellar reflex intensity grade: 2+ and Left patellar reflex intensity grade: 2+ Extrem General: No edema Coding Level of Care Code Est Pt Prev Care 40-64y(38977) Diagnoses Annual physical exam Z00.00 Nicotine dependence, cigarettes, uncomplicated F17.210 COPD (chronic obstructive pulmonary disease) J44.9 Acquired hypothyroidism E03.9 Hypothyroidism type: acquired Hypercholesterolemia E78.00 Generalized anxiety disorder F41.1 Right carotid bruit R09.89 Assessment & Plan Assessment & Plan (1) Annual physical exam: Code(s): Z00.00 - Encounter for general adult medical examination without abnormal findings Category: Medical Plan: Patient is advised to eat healthy, keep well hydrated, keep active and have adequate sleep. (2) Nicotine dependence, cigarettes, uncomplicated: Comment: (current smoker - onset 11yo, 1ppd x 45yrs, now 1/2ppd, 40pyh) May 10 stop, September 2024 CT lung Code(s): F17.210 - Nicotine dependence, cigarettes, uncomplicated Category: Medical Plan: Patient is up-to-date with cat scan with lung cancer screening (3) COPD (chronic obstructive pulmonary disease): Code(s): J44.9 - Chronic obstructive pulmonary disease, unspecified Category: Medical Plan: Patient is strongly advised to stop smoking! Controlled, no inhalers (4) Hypothyroid: Code(s): E03.9 - Hypothyroidism, unspecified Category: Medical Qualifiers: Hypothyroidism type: acquired Qualified Code(s): E03.9 - Hypothyroidism, unspecified Plan: Continue with thyroid medication will need blood work (5) Hypercholesterolemia: Code(s): E78.00 - Pure hypercholesterolemia, unspecified Category: Medical Plan: Avoid fried foods, chicken skin, eggs, butter margarine, pastries and meat. Be it pork or beef they have a lot of cholesterol LDL goal of less than 130 and triglyceride of less than 150 on simvastatin 10 mg at bedtime. Will need blood work (6) Generalized anxiety disorder: Code(s): F41.1 - Generalized anxiety disorder Category: Medical Plan: Stable (7) Right carotid bruit: Code(s): R09.89 - Other specified symptoms and signs involving the circulatory and respiratory systems Category: Medical Plan History of Present Illness The patient is a 58-year-old female presenting for an annual physical examination and management of chronic conditions. She has a history of osteopenia, with the last bone density test conducted in August 2023. The patient is a smoker, although she attempted to quit on May 10, but continues to smoke approximately 10 to 12 cigarettes daily. Her medical history includes asthma, generalized anxiety disorder, hypercholesterolemia, hypothyroidism, discoid lupus erythematosus, and chronic obstructive pulmonary disease (COPD). She is part of a lung cancer screening program and her last CT scan in September 2024 showed benign nodules. The patient reports a weight loss of 11 pounds and has been managing her cholesterol with simvastatin 10 mg at bedtime, aiming for an LDL goal of less than 130 mg/dL. Her blood work in July 2023 showed normal blood count, electrolytes, renal function, and a hemoglobin A1c of 5.7%. Liver function tests were normal, but LDL cholesterol was elevated at 132 mg/dL. She experiences occasional numbness in her left big toe and tingling sensations in her arms when sneezing. Additionally, she reports eye twitching, which she attributes to fatigue from screen time. Her family history is significant for heart attack in her father and sister, pancreatic cancer, brain tumor in her sister, and lung cancer in her grandmother. She consumes alcohol very rarely and denies any new diagnoses or surgeries since her last visit. Health Maintenance - Lung cancer screening: CT scan in September 2024 showed benign nodules, continued routine screening advised - Mammogram: Up to date - Colonoscopy: Last performed in 2018 - Blood work: Normal blood count, electrolytes, renal function, hemoglobin A1c 5.7%, elevated LDL at 132 mg/dL - Smoking cessation: Strongly advised to quit smoking - Vaccinations: Discussed flu and shingles vaccines Social History - Tobacco use: Smokes 10-12 cigarettes daily, attempted cessation on May 10 - Alcohol use: Consumes alcohol very rarely, approximately once a year - Family history: Father and sister with heart attack, sister with brain tumor, grandmother with lung cancer Review of Systems - General: Reports weight loss of 11 pounds - Respiratory: Denies dyspnea, reports occasional shortness of breath when humid - Cardiovascular: Denies chest pain, palpitations, or syncope - Gastrointestinal: Denies nausea, vomiting, or heartburn, reports normal bowel movements - Neurological: Reports numbness in left big toe, tingling in arms when sneezing, denies dizziness or headaches - Musculoskeletal: Denies joint pain or swelling - Ophthalmologic: Reports eye twitching, denies vision changes - Genitourinary: Denies dysuria, reports nocturia once per night Physical Exam General: Cooperative, healthy appearing, comfortable, no acute distress and well developed Orientation: Patient oriented x3 Limitations: No limitations Head: Normal to inspection Ears: Hearing grossly normal bilaterally, but patient reports occasional hearing issues; tested previously with no problems found Nose: Normal external nose present Face and sinus: Normal facial exam Eyes: Appearance normal, both eyes and all related structures; patient reports left eye twitching, likely due to screen time Neck: Normal visual inspection and Yes full ROM; bruit heard, ultrasound of carotid arteries recommended Respiratory: Normal respiratory effort and able to speak in complete sentences. Clear to auscultation bilaterally; patient reports occasional shortness of breath in humid conditions Cardiovascular: Regular rate and rhythm. Normal S1 and S2; extra sounds noted, ultrasound of neck recommended GI: Normal to inspection. Soft to palpation and nontender Skin: No rashes or lesions noted; patient uses steroid creams for eczema and discoid lupus Neuro: Patient oriented x3; reports occasional numbness in left big toe and pins and needles in arms when sneezing Extremities: Normal to inspection; reports occasional numbness in left big toe, no swelling noted Results - Labs: Normal blood count, electrolytes, renal function, hemoglobin A1c 5.7%, elevated LDL at 132 mg/dL - Imaging: CT scan in September 2024 showed benign nodules in lung Plan Patient was informed and verbally consented to the use of an ambient scribe for clinic note documentation during this visit. 1. Osteopenia The patient has a history of osteopenia, with the last bone density test conducted in August 2023. Continued monitoring of bone density is recommended to assess progression and need for intervention. 2. Asthma The patient has a history of asthma, which is currently controlled without the use of inhalers. She reports occasional shortness of breath when it is humid, but it does not limit her activities. 3. Generalized Anxiety Disorder The patient has a history of generalized anxiety disorder, but no specific management plan was discussed during this visit. 4. Hypercholesterolemia The patient is managing hypercholesterolemia with simvastatin 10 mg at bedtime, aiming for an LDL goal of less than 130 mg/dL. Her recent blood work showed an LDL level of 132 mg/dL, indicating the need for continued monitoring and potential adjustment of therapy. 5. Hypothyroidism The patient is on thyroid medication, and recent tests indicate stable thyroid function. Continued medication adherence and routine monitoring are advised. 6. Discoid Lupus Erythematosus The patient manages discoid lupus erythematosus with topical steroids and steroid-sparing agents. She is advised to use steroids sparingly to avoid skin changes. 7. Chronic Obstructive Pulmonary Disease (Copd) The patient has COPD and is part of a lung cancer screening program. Her recent CT scan showed benign nodules, and continued routine screening is advised. 8. Tobacco Use Disorder The patient smokes 10-12 cigarettes daily and has been strongly advised to quit smoking. Smoking cessation support and resources should be considered to aid in quitting. 9. Hearing Loss The patient reports hearing difficulties but does not wish to pursue further testing at this time. 10. Numbness In Left Big Toe The patient experiences occasional numbness in her left big toe, with no associated swelling or pain. Further evaluation may be considered if symptoms persist or worsen. 11. Tingling Sensation In Arms The patient reports tingling sensations in her arms when sneezing, attributed to vibration during sneezing. No immediate intervention is planned unless symptoms change. 12. Eye Twitching The patient experiences eye twitching, likely due to fatigue from prolonged screen time. Reducing screen time and ensuring adequate rest are recommended. Discussion Notes During the visit, I discussed the importance of smoking cessation with the patient, emphasizing the health benefits and offering resources for support. We reviewed her current medications, including simvastatin for hypercholesterolemia and thyroid medication, ensuring she understands the importance of adherence. I advised her on the need for routine screenings, including lung cancer screening and bone density monitoring, to manage her chronic conditions effectively. Patient Instructions - Quit smoking: Strongly advised to stop smoking and consider cessation resources. - Continue medications: Adhere to prescribed simvastatin and thyroid medication. - Routine screenings: Follow up with lung cancer screening and bone density tests as advised. - Monitor symptoms: Report any changes in numbness or tingling sensations. - Eye care: Reduce screen time and ensure adequate rest to alleviate eye twitching. Orders: Orders Free T4 (Free Thyroxine) Today R73.02 - Impaired glucose tolerance (oral) Complete Blood Count Auto Diff Today R73.02 - Impaired glucose tolerance (oral) Lipid Panel Today E78.00 - Pure hypercholesterolemia, unspecified, R73.02 - Impaired glucose tolerance (oral) Magnesium Today R73.02 - Impaired glucose tolerance (oral) Hemoglobin A1c Today R73.02 - Impaired glucose tolerance (oral) Comprehensive Met. Panel Today R73.02 - Impaired glucose tolerance (oral) Thyroid Stimulating Hormone Today R73.02 - Impaired glucose tolerance (oral) Vitamin B12 and Folate Today R73.02 - Impaired glucose tolerance (oral) Vitamin D 25-OH Total Today R73.02 - Impaired glucose tolerance (oral) UA CC w/rflx Micro + Cult Today R30.0 - Dysuria, R73.02 - Impaired glucose tolerance (oral) US carotid duplex BI Today R73.02 - Impaired glucose tolerance (oral) Medications: New tacrolimus 0.1% 1 appl topical BID 30 grams 0RF R73.02 - Impaired glucose tolerance (oral) fluocinonide 0.05% 1 appl topical BID 30 grams 0RF R73.02 - Impaired glucose tolerance (oral) betamethasone dipropionate 0.05% 1 appl topical BID PRN 45 grams 0RF skin irritation R73.02 - Impaired glucose tolerance (oral) fluocinonide 0.05% 1 appl topical BID-QID PRN 60 mL 0RF rash R73.02 - Impaired glucose tolerance (oral)
[2024-11-01 11:28] VITALS: BP 122/70; PULSE 87; O2SAT 97; BMI 29.7
--- OUTSIDE RECORDS SUMMARY | 2024-11-01 16:11 | XMS_ITS | Patient Health Record ---
Author Organization [facility] Address [address] [place] [address] Care Team Providers Care Online Advertising Analyst Name Role Phone Trevor Bell MD Primary Care Provider Doni Simons [phone] Allergies Allergen (clinical drug ingredient) Drug/Non Drug [...] Problem Status W/U Status Risk Notes Problem [id number] Encounter for screening for malignant neoplasm of colon (Z12.11) Active confirmed Problem [id number] Pharyngoesophage al dysphagia (R13.14) Active confirmed Plan Of Treatment Pending Test Test Name Order Date GI BIOPSY 12/12/2017 XR BARIUM SWALLOW-ESOPHAGUS 10/19/2017 Future Test Test Name Order Date COLONOSCOPY 10/19/2017 Insurance Providers Payer Name Payer Address Payer Phone Subscriber Number Group Number Insured Name Patient Relationship to Insured Coverage Start Date Coverage End Date [employer] [address] [place], [place] [id number] JOSEPH RODRIGUEZ Self - patient is the insured Medical (General) History Medical History History ICD Code Denies RI,DM,CVA,Lung disease,renal dise ase Hypothyroidism Discoid lupus Surgical History Surgery Date(Month/Year) [place] teeth extraction 1985 2010
--- OUTSIDE RECORDS SUMMARY | 2024-11-01 16:11 | XMS_ITS | Clinical Summary ---
Author Organization [facility] Address [address] [place] [address] Phone Care Team Providers Care Dressing Machine Operator Name Role Phone Pcp, Unknown Unavailable Unavailable Allergies Active Allergy Reactions Criticality Noted Date Comments Amoxicillin Rash Low 03/22/2017 Metronidazole GI Upset 03/22/2017 Stomach pain [id number]-Gcrcfgdkqz-Uhvioov in Other (See Comments) 03/22/2017 Blisters Pseudoephedrine [...] HEPATITIS C SCREENING 1984 HIV ONE-TIME SCREENING (18-65 YEARS) 1984 PNEUMOCOCCAL VACCINES (50+ years) (1 of 2 - PCV) 1985 COLOGUARD 11/19/2011 COLONOSCOPY 11/19/2011 COLORECTAL CANCER SCREENING 11/19/2011 FIT TEST 11/19/2011 FOBT 11/19/2011 SIGMOIDOSCOPY 11/19/2011 VIRTUAL COLONOSCOPY 11/19/2011 ZOSTER VACCINES (1 of 2) 2016 MAMMOGRAM 05/28/2017 05/29/2015 PAP SMEAR 05/28/2017 05/28/2014 Adult Td,Tdap Booster 12/15/2020 12/15/2010 LIPID PANEL 03/29/2021 03/29/2016 INFLUENZA VACCINE (#1) 2024 0, 12/08/2018, 11/22/2017, Additional history exists COVID-19 VACCINE ( season) 2024 11/15/2020, 05/14/2020, 04/23/2020 HEPATITIS A VACCINES Aged [...] Recently Relevant to Health Maintenance Care Teams Dressing Machine Operator Relationship Specialty Start Date End Date Pcp, Unknown 09/04/21 Additional Source Comments The information contained in this document represents components of the legal health record. It is not the complete legal health record.[facility]
== END 2024-11-01 12:13 | disposition home or self-care (01) ==
LOC: HO.HMCH 11:12
PROVIDERS: PCP Internal Medicine; Visit Provider Internal Medicine
DX: Z00.00 Encounter for general adult medical examination without abnormal findings (principal); F17.210 Nicotine dependence, cigarettes, uncomplicated; J44.9 Chronic obstructive pulmonary disease, unspecified; E03.9 Hypothyroidism, unspecified; E78.00 Pure hypercholesterolemia, unspecified; F41.1 Generalized anxiety disorder; R09.89 Other specified symptoms and signs involving the circulatory and respiratory systems

== ENCOUNTER 2024-11-12 06:04 | Outpatient (REF) | payer BC, SELFPAY ==
--- OUTSIDE RECORDS SUMMARY | 2024-11-12 06:07 | XMS_ITS | Clinical Summary ---
Author Organization LL 299 [facility] Address [address] [place] [address] Phone Care Team Providers Care Cork Sorter Name Role Phone Trevor Bell MD Primary Care Provider [phone] Social History Tobacco Use Types Packs/Day Years Used Date Smoking Tobacco: Never Assessed Comments Unknown Sex and Gender Information Value Date Recorded Sex Assigned at Not on file Legal Sex Female 7:32 AM EST Gender Identity Not on file Sexual Orientation Not on file Plan of Treatment Health Maintenance Due Date Last Done Comments Breast Cancer Screening 1966 Colorectal Cancer Screening: Colonoscopy 1966 DTaP,Tdap,and Td Vaccines (1 - Tdap) 1985 Hepatitis B Vaccines (1 of 3 - 19+ 3-dose series) 1985 Pneumococcal Vaccine: 50+ Ye ars (1 of 1 - PCV) 2016 Zoster Vaccines (1 of 2) 2016 Depression Screening 02/08/2024 HIV Screening 03/28/2024 Hepatitis C Screening 03/28/2024 Social Influencers of Health Screening 03/28/2024 COVID-19 Vaccine (1 - 2023-2 5 season) 2024 Influenza Vaccine (#1) 2024 Cervical Cancer Screening: P ap Smear 03/27/2027 03/27/2024 RSV Immunization Adult Patie nts (1 - 1-dose 75+ series) 2041 HIB Vaccines Aged Out No longer eligi ble based on patient's age to complete this topic HPV Vaccines Aged Out No longer eligi ble based on patient's age to complete this topic Hepatitis A Vaccines Aged Out No long er eligible based on patient's age to complete this topic IPV Vaccines Aged Out No longer eligi ble based on patient's age to complete this topic MMR Vaccines Aged Out No longer eligi ble based on patient's age to complete this topic Meningococcal ACWY Vaccine Aged Out N o longer eligible based on patient's age to complete this topic Meningococcal B Vaccine Aged Out No l onger eligible based on patient's age to complete this topic RSV Immunization Patients Un ant 20 months Aged Out No longer eligible b ased on patient's age to complete this topic Varicella Vaccines Aged Out No longer eligible based on patient's age to complete this topic Procedures Procedure Name Priority Date/Time Associated Diagnosis Comments PAP SMEAR Routine 03/27/2024 12:00 AM EST Encounter for gynecological examination (general) (routine) without abnormal findings from Last 3 Months or Most Recently Relevant to Health Maintenance Results * Pap smear (03/27/2024 12:00 AM EST) Interpretation Negative for intraepithelial lesion or malignancy 03/28/2024 4:37 PM [facility] General Categorization Negative 03/28/2024 4:37 PM [facility] Specimen Adequacy Satisfactory for evaluation, endocervical/rubin sformation zone component present 03/28/2024 4:37 PM [facility] Pap Methodology Liquid Based Pap Test 03/28/2024 4:37 PM [facility] Disclaimer The Pap test is a screening test which carries an inherent false negative rate. These test results should be correlated with the patient's clinical findings and history. This Pap test was processed using an automated screening system. Technical cytopathology services provided by [facility], at [address] [place] [id number] (CLIA # [id number]/Dax Cannon MD, Electrophysiology Technologist.) 03/28/2024 4:37 PM [facility] Console Pap Interpretation Reported 03/28/2024 4:37 PM [facility] Brushing/Spatula Cervix uteri structure / Unknown 03/27/2024 03/28/2024 7:41 AM EST us Ryder Holder MD LAB CYTOLOGY ORDERABLES Final Result [facility] [address] [place] [address], from Last 3 Months or Most Recently Relevant to Health Maintenance Insurance [facility] Care Teams Cork Sorter Relationship Specialty Start Date End Date Trevor Bell MD PCP - General Internal Medicine 03/28/24
--- OUTSIDE RECORDS SUMMARY | 2024-11-12 06:07 | XMS_ITS | Encounter Summary ---
Author Organization [facility] Address [address] [place] [address] Care Team Providers Care Cotton Baler Name Role Phone Trevor Bell MD Primary Care Provider [phone] Encounter Details Date Type Department Care Team (Latest Contact Info) Description 03/28/2024 Lab Requisition [facility] - Main Lab [address] [place] [address] Ryder Holder MD [address] [address] Encounter for gynecological examination (general) [...] intraepithelial lesion or malignancy 03/28/2024 4:37 PM [facility] General Categorization Negative 03/28/2024 4:37 PM [facility] Specimen Adequacy Satisfactory for evaluation, endocervical/rubin sformation zone component present 03/28/2024 4:37 PM [facility] Pap Methodology Liquid Based Pap Test 03/28/2024 4:37 PM EST [facility] Disclaimer The Pap test is a screening test which carries an inherent false negative rate. These test results should be correlated with the patient's clinical findings and history. This Pap test was processed using an automated screening system. Technical cytopathology services provided by [facility], at [address] [place] [address] (CLIA # [id number]/Dax Cannon MD, Stone Driller Helper.) 03/28/2024 4:37 PM EST [facility] Console Pap Interpretation Reported 03/28/2024 4:37 PM EST [facility] Brushing/Spatula Cervix uteri structure / Unknown 03/27/2024 03/28/2024 7:41 AM EST us Ryder Holder MD LAB CYTOLOGY ORDERABLES Final Result [facility] [address] [place] [address], documented in this encounter Visit Diagnoses Diagnosis Encounter for gynecological examination (general) (routine) without abnormal findings documented in this encounter Care Teams Cotton Baler Relationship Specialty Start Date End Date Trevor Bell MD PCP - General Internal Medicine 03/28/24 documented as of this encounter
--- OUTSIDE RECORDS SUMMARY | 2024-11-12 06:07 | XMS_ITS | Clinical Summary ---
Author Organization [facility] Address [address] [place] [address] Phone Care Team Providers Care Vp Product Marketing Name Role Phone Pcp, Unknown Unavailable Unavailable Allergies Active Allergy Reactions Criticality Noted Date Comments Amoxicillin Rash Low 03/22/2017 Metronidazole GI Upset 03/22/2017 Stomach pain Xssobsxp-Nylfyujktu-Fnhhyud in Other (See Comments) 03/22/2017 Blisters Pseudoephedrine [...] Recently Relevant to Health Maintenance Care Teams Vp Product Marketing Relationship Specialty Start Date End Date Pcp, Unknown 09/04/21 Additional Source Comments The information contained in this document represents components of the legal health record. It is not the complete legal health record.[facility]
--- OUTSIDE RECORDS SUMMARY | 2024-11-12 06:07 | XMS_ITS | Patient Health Record ---
Author Organization [facility] Address [address] [place] [address] Care Team Providers Care Parole Or Probation Officer Name Role Phone Trevor Bell MD Primary Care Provider Doni Simons [phone] Allergies Allergen (clinical drug ingredient) Drug/Non Drug [...] Problem Status W/U Status Risk Notes Problem [id number] Encounter for screening for malignant neoplasm of colon (Z12.11) Active confirmed Problem [id number] Pharyngoesophage al dysphagia (R13.14) Active confirmed Plan Of Treatment Pending Test Test Name Order Date GI BIOPSY 12/12/2017 XR BARIUM SWALLOW-ESOPHAGUS 10/19/2017 Future Test Test Name Order Date COLONOSCOPY 10/19/2017 Insurance Providers Payer Name Payer Address Payer Phone Subscriber Number Group Number Insured Name Patient Relationship to Insured Coverage Start Date Coverage End Date [employer] [address] [place], [place] [address] [phone] [id number] JOSEPH RODRIGUEZ Self - patient is the insured Medical (General) History Medical History History ICD Code Denies [place],DM,CVA,Lung disease,renal dise ase Hypothyroidism Discoid lupus Surgical History Surgery Date(Month/Year) [place] teeth extraction 1985 2010
[2024-11-12 06:41] LABS: MANUAL DIFF FLAG NO
[2024-11-12 07:26] LABS: Hematocrit 45.3 % (37.0-47.0); Hemoglobin 15.1 g/dl (12.0-16.0); Imm Gran Abs Auto 0.06 X10*3/uL (0.00-0.03); Imm Gran Pct Auto 0.6 % (0.0-0.4); Lymphocytes Absolute Auto 3.0 X10*3/uL (1.2-4.9); Mean Corpuscular HGB Conc 33.3 g/dl (31.0-35.0); Mean Corpuscular Hemoglobin 31.3 pg (27.0-33.0); Mean Corpuscular Volume 93.8 fL (80.0-98.0); NRBC Abs Auto 0.000 X10*3/uL (0.0-0.012); NRBC Pct Auto 0.0 /100WBC (0.0-0.2); Platelet Count 223 X10*3/uL (160-400); Red Blood Count 4.83 X10*6/uL (4.20-5.50); White Blood Count 9.6 X10*3/uL (4.8-10.8)
[2024-11-12 07:30] LABS: Appearance Urine Clear; Glucose Urine UA Negative (Negative); PH 6.0 (5.0-9.0); Specific Gravity - Urine 1.015 (1.005-1.025); UMIC TRIGGER UACC YES
[2024-11-12 07:34] LABS: Total Hemoglobin (HGBA1C) 3841.3100 umol/L
[2024-11-12 07:43] LABS: UACC Culture Trigger YES
[2024-11-12 07:49] LABS: Alanine Aminotransferase 27 U/L (0-31); Albumin Level 4.8 g/dL (3.5-5.0); Alkaline Phosphatase 74 U/L (39-117); Anion Gap 11 (12-20); Aspartate Amino Transferase 31 U/L (5-31); Blood Urea Nitrogen 12 mg/dL (9-16); Calcium 9.8 mg/dL (8.4-10.2); Carbon Dioxide 26 mmol/L (22-29); Chloride 106 mmol/L (96-108); Cholesterol 214 mg/dL (<200); Estimated Glomerular Filt Rate > 60; HDL Cholesterol 58 mg/dL (>40); Magnesium 2.0 mg/dL (1.6-2.6); Potassium 4.5 mmol/L (3.3-5.1); Sodium 138 mmol/L (135-145); Total Protein 7.8 g/dL (6.5-8.0); Triglycerides 163 mg/dL (<150)
[2024-11-12 08:05] LABS: Free T4 (Free Thyroxine) 1.00 ng/dL (0.71-1.85); Thyroid Stimulating Hormone 3.36 uIU/mL (0.32-4.0)
[2024-11-12 08:17] LABS: Folate 12.2 ng/mL (> or = 4.0); Vitamin B12 385 pg/mL (200-900)
== END 2024-11-12 06:05 | disposition home or self-care (01) ==
LOC: HO.LAB 06:04
PROVIDERS: PCP Internal Medicine; Visit Provider Internal Medicine
DX: R73.02 Impaired glucose tolerance (oral) (principal); E78.00 Pure hypercholesterolemia, unspecified; Z13.21 Encounter for screening for nutritional disorder
CPT/HCPCS: 36415; 80053; 80061; 81001; 82306; 82607; 82746; 83036; 83735; 84439; 84443; 85025; 87086

== ENCOUNTER 2024-11-19 07:58 | Outpatient (REF) | payer BC, SELFPAY ==
--- OUTSIDE RECORDS SUMMARY | 2024-11-19 08:01 | XMS_ITS | Clinical Summary ---
Author Organization [facility] Address [address] [place] [address] Phone Care Team Providers Care Flying Ii Instructor Name Role Phone Pcp, Unknown Unavailable Unavailable Allergies Active Allergy Reactions Criticality Noted Date Comments Amoxicillin Rash Low 03/22/2017 Metronidazole GI Upset 03/22/2017 Stomach pain Rhpyynwf-Pxqyivgeti-Gxsseaf in Other (See Comments) 03/22/2017 Blisters Pseudoephedrine [...] 12/08/2018, 11/22/2017, Additional history exists COVID-19 VACCINE (2024- season) 2024 11/15/2020, 05/14/2020, 04/23/2020 RSV VACCINE (1 - 1-dose 75+ series) 2041 HEPATITIS A VACCINES Aged Out No long [...] Recently Relevant to Health Maintenance Care Teams Flying Ii Instructor Relationship Specialty Start Date End Date Pcp, Unknown 09/04/21 Additional Source Comments The information contained in this document represents components of the legal health record. It is not the complete legal health record.[facility]
--- OUTSIDE RECORDS SUMMARY | 2024-11-19 08:01 | XMS_ITS | Encounter Summary ---
Author Organization [facility] Address [address] [place] [address] Care Team Providers Care Surveillance Dual Rate Officer Name Role Phone Trevor Bell MD Primary Care Provider [phone] Encounter Details Date Type Department Care Team (Latest Contact Info) Description 03/28/2024 Lab Requisition [facility] - Main Lab [address] [place] [address] Ryder Holder MD [address] [address] Encounter for gynecological examination (general) [...] intraepithelial lesion or malignancy 03/28/2024 4:37 PM [facility] General Categorization Negative 03/28/2024 4:37 PM [facility] Specimen Adequacy Satisfactory for evaluation, endocervical/rubin sformation zone component present 03/28/2024 4:37 PM [facility] Pap Methodology Liquid Based Pap Test 03/28/2024 4:[address] [facility] Disclaimer The Pap test is a screening test which carries an inherent false negative rate. These test results should be correlated with the patient's clinical findings and history. This Pap test was processed using an automated screening system. Technical cytopathology services provided by [facility], at [address] [place] [address] (CLIA # [id number]/Dax Cannon MD, Radio Intelligence Operator.) 03/28/2024 4:[address] [facility] Console Pap Interpretation Reported 03/28/2024 4:[address] [facility] Brushing/Spatula Cervix uteri structure / Unknown 03/27/2024 03/28/2024 7:41 AM EST us Ryder Holder MD LAB CYTOLOGY ORDERABLES Final Result [facility] [address] [place] [address], documented in this encounter Visit Diagnoses Diagnosis Encounter for gynecological examination (general) (routine) without abnormal findings documented in this encounter Care Teams Surveillance Dual Rate Officer Relationship Specialty Start Date End Date Trevor Bell MD PCP - General Internal Medicine 03/28/24 documented as of this encounter
--- OUTSIDE RECORDS SUMMARY | 2024-11-19 08:01 | XMS_ITS | Clinical Summary ---
Author Organization LL [address] [facility] Address [address] [place] [address] Phone Care Team Providers Care Principal Examiner Name Role Phone Trevor Bell MD Primary Care Provider [phone] Social History Tobacco Use Types Packs/Day Years [...] intraepithelial lesion or malignancy 03/28/2024 4:37 PM [facility] General Categorization Negative 03/28/2024 4:37 PM [facility] Specimen Adequacy Satisfactory for evaluation, endocervical/rubin sformation zone component present 03/28/2024 4:37 PM [facility] Pap Methodology Liquid Based Pap Test 03/28/2024 4:37 PM [facility] Disclaimer The Pap test is a screening test which carries an inherent false negative rate. These test results should be correlated with the patient's clinical findings and history. This Pap test was processed using an automated screening system. Technical cytopathology services provided by [facility], at [address] [place] [address] (CLIA # [id number]/Dax Cannon MD, Physical Fitness Teacher.) 03/28/2024 4:37 PM [facility] Console Pap Interpretation Reported 03/28/2024 4:37 PM [facility] Brushing/Spatula Cervix uteri structure / Unknown 03/27/2024 03/28/2024 7:41 AM EST us Ryder Holder MD LAB CYTOLOGY ORDERABLES Final Result [facility] [address] [place] [address], from Last 3 Months or Most Recently Relevant to Health Maintenance Insurance [facility] Care Teams Principal Examiner Relationship Specialty Start Date End Date Trevor Bell MD PCP - General Internal Medicine 03/28/24
--- OUTSIDE RECORDS SUMMARY | 2024-11-19 08:01 | XMS_ITS | Patient Health Record ---
Author Organization [facility] Address [address] [place] [address] Care Team Providers Care Senior Hr Manager Name Role Phone Trevor Bell MD Primary Care Provider Doni Simons [phone] Allergies Allergen (clinical drug ingredient) Drug/Non Drug [...] Problem Status W/U Status Risk Notes Problem Screening for malignant neoplasm of colon (559473956) Encounter for screening for malignant neoplasm of colon (Z12.11) Active confirmed Problem Dysphagia (53040873) Pharyngoesophageal dysphagia (R13.14) Active confirmed Plan Of Treatment Pending Test Test Name Order Date GI BIOPSY 12/12/2017 XR BARIUM SWALLOW-ESOPHAGUS 10/19/2017 Future Test Test Name Order Date COLONOSCOPY 10/19/2017 Insurance Providers Payer Name Payer Address Payer Phone Subscriber Number Group Number Insured Name Patient Relationship to Insured Coverage Start Date Coverage End Date C[employer] [address] [place], [place] [address] [id number] JOSEPH RODRIGUEZ Self - patient is the insured Medical (General) History Medical History History ICD Code Denies [place],DM,CVA,Lung disease,renal dise ase Hypothyroidism Discoid lupus Surgical History Surgery Date(Month/Year) [place] teeth extraction 1985 2010
[2024-11-19 08:54] LABS: Appearance Urine Clear; Glucose Urine UA Negative (Negative); PH 7.0 (5.0-9.0); Specific Gravity - Urine <= 1.005 (1.005-1.025); UMIC TRIGGER UACC YES
== END 2024-11-19 07:59 | disposition home or self-care (01) ==
LOC: HO.LAB 07:58
PROVIDERS: PCP Internal Medicine; Visit Provider Internal Medicine
DX: R31.9 Hematuria, unspecified (principal)
CPT/HCPCS: 81001; 81003; 88112

== ENCOUNTER 2025-01-22 10:57 | Outpatient (REF) | payer BC, SELFPAY ==
--- NOTE | ~2025-01-22 | US_ITS ---
EXAMINATION: BILATERAL CAROTID ULTRASOUND WITH DOPPLER HISTORY: R09.89 - Other specified symptoms and signs involving the circulatory an... COMPARISON: There are no prior studies available for comparison. TECHNIQUE: Real time and Color and Spectral doppler ultrasonography of the carotid and vertebral arteries was performed in multiple planes. FINDINGS: No plaque seen. VERTEBRAL FLOW DIRECTION: Antegrade bilaterally. PEAK SYSTOLIC VELOCITIES (in cm/sec): 48 cm/s on the right and 43 cm/s on the left RIGHT: CCA: Prox: 85 cm/s Dist: 80 cm/s ICA: Prox: 71 cm/s Mid: 87 cm/s Dist: 58 cm/s ICA/CCA Ratio: 0.83 ECA: 10 6 cm/s Subclavian: 110 cm/s LEFT: CCA: Prox: 1 15 cm/s Dist: 91 cm/s ICA: Prox: 85 centimeters per second Mid: 79 cm/s Dist: 81 cm/s ICA/CCA Ratio: 0.7 ECA: 97 cm/s Subclavian: 112 cm/s US/US carotid duplex BI IMPRESSION: Normal exam. Electronically signed by: Mariluz Garzon MD 01/22/2025 12:13 PM [facility]
--- OUTSIDE RECORDS SUMMARY | 2025-01-22 14:24 | XMS_ITS | Clinical Summary ---
Author Organization LL 299 [facility] Address [address] [place] [address] Phone Care Team Providers Care Telephone Switchboard Operator Name Role Phone Trevor Bell MD Primary Care Provider [phone] Social History Tobacco Use Types Packs/Day Years [...] Health Screening 03/28/2024 COVID-19 Vaccine (1 - 2024-2 6 season) 2024 Influenza Vaccine (#1) 2024 Cervical [...] intraepithelial lesion or malignancy 03/28/2024 4:37 PM [facility] at 1637 EST General Categorization Negative 03/28/2024 4:37 PM [facility] Specimen Adequacy Satisfactory for evaluation, endocervical/rubin sformation zone component present 03/28/2024 4:37 PM [facility] Pap Methodology Liquid Based Pap Test 03/28/2024 4:37 PM [facility] Disclaimer The Pap test is a screening test which carries an inherent false negative rate. These test results should be correlated with the patient's clinical findings and history. This Pap test was processed using an automated screening system. Technical cytopathology services provided by [facility], at [address] [place] [address] (CLIA # [id number]/Dax Cannon MD, Outside Salesperson.) 03/28/2024 4:37 PM [facility] Console Pap Interpretation Reported 03/28/2024 4:37 PM [facility] Brushing/Spatula Cervix uteri structure / Unknown 03/27/2024 03/28/2024 7:41 AM EST us Ryder Holder MD LAB CYTOLOGY ORDERABLES Final Result [facility] [place] [facility] [address] [place] [address], from Last 3 Months or Most Recently Relevant to Health Maintenance Insurance [facility] Care Teams Telephone Switchboard Operator Relationship Specialty Start Date End Date Trevor Bell MD PCP - General Internal Medicine 03/28/24
--- OUTSIDE RECORDS SUMMARY | 2025-01-22 14:24 | XMS_ITS | Patient Health Record ---
Author Organization [facility] Address [address] [place] [address] Care Team Providers Care Power Press Supervisor Name Role Phone Trevor Bell MD Primary Care Provider Doni Simons [phone] Allergies Allergen (clinical drug ingredient) Drug/Non Drug Allergy documented on EMR Reaction Allergy Type Onset Date Status seasonal (uncoded) Unknown Allergy A ctive amoxicillin Amoxicillin Unknown Drug Allergy Act [place] metronidazole Flagyl Unknown Drug Allergy [place] Neosporin Unknown Drug Allergy Active Reason For Referral No Information Medications Medication SIG (Take, Route, Frequency, Duration) Notes Start Date End Date Status Ibuprofen 200 MG Tablet 1 tablet with fo od or milk as needed Orally prn Active Betamethasone Dipropionate 0.05 % Cream APPLY TWICE DAILY TO ALL INVOLVED AREAS OF NECK AND FACE TO RELIEVE ITCHING AFTER COLD SOAKS External prn Active Chantix 0.5 MG Tablet 1 tablet Orally On ce a day Active Levoxyl 112 MCG Tablet 1 tablet on an em pty stomach in the morning Orally Once a day Active Social History Tobacco Use: Social History Observation Description Date Details (start date - stop date) Former Smoker NA - NA Social History Drugs/Alcohol: Social Info Question Answer Notes Alcohol Screen Did you have a drink containing alcohol in the past year? No Points 0 Interpretation Negative Tobacco Use: Social Info Question Answer Notes Tobacco Use/Smoking Patient is a former smoker How long has it been since you last smoked? 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 Section Notes: Nonsmoker except for a coupl e of puffs per day----stopped in 09/2017; no sig alcohol Problems Problem Type SNOMED Code ICD Code Onset Dates Problem Status W/U Status Risk Notes Problem Screening for malignant neoplasm of colon (269550038) Encounter for screening for malignant neoplasm of colon (Z12.11) Active confirmed Problem Dysphagia (90550722) Pharyngoesophageal dysphagia (R13.14) Active confirmed Plan Of Treatment Pending Test Test Name Order Date GI BIOPSY 12/12/2017 XR BARIUM SWALLOW-ESOPHAGUS 10/19/2017 Future Test Test Name Order Date COLONOSCOPY 10/19/2017 Insurance Providers Payer Name Payer Address Payer Phone Subscriber Number Group Number Insured Name Patient Relationship to Insured Coverage Start Date Coverage End Date CIGNA [address] [place], [place] [address] [id number] JOSEPH RODRIGUEZ Self - patient is the insured Medical (General) History Medical History History ICD Code Denies [place],DM,CVA,Lung disease,renal dise ase Hypothyroidism Discoid lupus Surgical History Surgery Date(Month/Year) [place] teeth extraction 1985 2010
--- OUTSIDE RECORDS SUMMARY | 2025-01-22 14:24 | XMS_ITS | Clinical Summary ---
Author Organization [facility] Address [address] [place] [address] Phone Care Team Providers Care Anti Tank Missileman Name Role Phone Pcp, Unknown Unavailable Unavailable Allergies Active Allergy Reactions Criticality Noted Date Comments Amoxicillin Rash Low 03/22/2017 Metronidazole GI Upset 03/22/2017 Stomach pain Klqzryzg-Rzmigonlte-Qqbnusi in Other (See Comments) 03/22/2017 Blisters Pseudoephedrine [...] Recently Relevant to Health Maintenance Care Teams Anti Tank Missileman Relationship Specialty Start Date End Date Pcp, Unknown 09/04/21 Additional Source Comments The information contained in this document represents components of the legal health record. It is not the complete legal health record.[facility]
--- OUTSIDE RECORDS SUMMARY | 2025-01-22 14:24 | XMS_ITS | Encounter Summary ---
Author Organization [facility] Address [address] [place] [address] Care Team Providers Care Internal Sales Engineer Name Role Phone Trevor Bell MD Primary Care Provider [phone] Encounter Details Date Type Department Care Team (Latest Contact Info) Description 03/28/[address] [facility] - Main Lab [address] [place] [address] Ryder Holder MD [address] [address] Encounter for gynecological examination [...] intraepithelial lesion or malignancy 03/28/2024 4:37 PM EST [facility] at 1637 EST General Categorization Negative 03/28/2024 4:37 PM EST [facility] Specimen Adequacy Satisfactory for evaluation, endocervical/rubin sformation zone component present 03/28/2024 4:37 PM EST [facility] Pap Methodology Liquid Based Pap Test 03/28/2024 4:37 PM EST [facility] Disclaimer The Pap test is a screening test which carries an inherent false negative rate. These test results should be correlated with the patient's clinical findings and history. This Pap test was processed using an automated screening system. Technical cytopathology services provided by [facility], at [address] [place] [address] (CLIA # [id number]/Dax Cannon MD, Nitroglycerin Supervisor.) 03/28/2024 4:37 PM EST [facility] Console Pap Interpretation Reported 03/28/2024 4:37 PM [facility] Brushing/Spatula Cervix uteri structure / Unknown 03/27/2024 03/28/2024 7:41 AM EST us Ryder Holder MD LAB CYTOLOGY ORDERABLES Final Result [facility] [address] [place] [address], documented in this encounter Visit Diagnoses Diagnosis Encounter for gynecological examination (general) (routine) without abnormal findings documented in this encounter Care Teams Internal Sales Engineer Relationship Specialty Start Date End Date Trevor Bell MD PCP - General Internal Medicine 03/28/24 documented as of this encounter
== END 2025-01-22 10:58 | disposition home or self-care (01) ==
LOC: HO.US 10:57
PROVIDERS: PCP Internal Medicine; Visit Provider Internal Medicine
DX: R09.89 Other specified symptoms and signs involving the circulatory and respiratory systems (principal)
CPT/HCPCS: 93880

== ENCOUNTER → 2025-01-22 11:02 | Outpatient (BNV) | payer BC, SELFPAY | PROVIDERS: PCP Internal Medicine; Visit Provider Radiology Diagnostic Radiology | DX: R09.89 Other specified symptoms and signs involving the circulatory and respiratory systems (principal) | CPT/HCPCS: 93880 ==